=== PATIENT | female | born 1955 | race Hispanic/Latino ===

== ENCOUNTER 2019-12-13 18:35 | Inpatient (IN) | payer OTHER, SELFPAY ==
[2019-12-13] MEDS ORDERED: Morphine 4 MG/ML VIAL ONE (19:11)
[2019-12-13] MEDS ORDERED: Ondansetron PF 4 MG/2 ML Vial ONE ×2 (19:11→21:03)
[2019-12-13 19:21] LABS: #Eosinphils 0.2 thou/uL (0.0-0.7); #Lymphocytes 3.7 thou/uL (1.20-3.40); #Monocytes 0.4 thou/uL (0.11-0.59); #Neutrophils 4.2 thou/uL (1.40-6.50); %Basophils 0.5 % (0.0-1.0); %Eosinophils 2.8 % (0.0-10.0); %Lymphocytes 43.5 % (21.0-51.0); %Monocytes 4.5 % (0.0-10.0); %Neutrophils 48.8 % (42.0-75.0); Hemoglobin 8.1 g/dL (12.0-16.0); Mean Corpuscular HGB CONC 30.6 g/dL (32.0-36.0); Mean Corpuscular Hemoglobin 22.2 pg (27.0-31.0); Mean Corpuscular Volume 72.4 fL (78.0-98.0); Mean Platelet Volume 9.6 fL (7.4-10.4); Platelet Count 353 thou/uL (130-400); RBC Distribution Width 19.6 % (11.5-14.5); Red Blood Cell (RBC) Count 3.65 mill/uL (4.20-5.40); White Blood Cell (WBC) Count 8.5 thou/uL (4.8-10.8)
[2019-12-13 19:38] LABS: Anisocytosis SLIGHT = 6-15 cells (100X) (0-5/hpf); Hypochromia SLIGHT = 6-15 cells (100X) (0-5/hpf); MDiff Complete? YES; Microcytosis SLIGHT = 6-15 cells (100X) (0-5/hpf); Ovalocytes SLIGHT = 2-5 cells (100X) (0-1/hpf); Platelet Morphology Comment Appears Adequate; Polychromasia SLIGHT = 2-3 cells (100X) (0-2/hpf); Target Cells SLIGHT = 2-5 cells (100X) (0-1/hpf)
--- NOTE | 2019-12-13 20:56 | ULT ---
TRANSABDOMINAL TRANSVAGINAL PELVIC ULTRASOUND DATE:: 12/13/2019 8:32 PM CLINICAL HISTORY: History of right lower quadrant abdominal pain for 2 days with nausea and vomiting. History of hysterectomy and recent urinary tract infection. COMPARISON: CT the abdomen and pelvis without contrast dated December 13, 2019 TECHNIQUE: Grayscale and color Doppler images were obtained of the pelvis see a transabdominal and t ransvaginal approach FINDINGS: UTERUS: The uterus is surgically absent. OVARIES: The ovaries were not demonstrated. CUL-DE-SAC: No free fluid IMPRESSION: 1. Hysterectomy. 2. Nonvisualization of the ovaries. 3. No free fluid or lymphadenopathy identified.
--- NOTE | 2019-12-13 21:45 | PDOC.EVN ---
Event Note - Event Note Event Note: [id number] hp
[2019-12-13] MEDS ORDERED: metroNIDAZOLE 500 MG in Premix Bag 1 BAG IVPB SCH (22:00)
[2019-12-13] MEDS ORDERED: Morphine 4 MG/ML VIAL SLOW IVP PRN (22:52)
[2019-12-13] MEDS ORDERED: Acetaminophen 325 MG TAB PO PRN (23:00)
[2019-12-14] MEDS: Ondansetron PF 4 MG/2 ML Vial IVP PRN ×4 (00:22→23:06)
[2019-12-14] MEDS: Sodium Chloride 0.9% 1,000 ML IV SCH ×2 (00:23→09:03)
[2019-12-14] MEDS: metroNIDAZOLE 500 MG in Premix Bag 1 BAG IVPB SCH ×3 (00:23→16:50)
--- NOTE | 2019-12-14 01:19 | HP ---
CHIEF COMPLAINT: Abdominal pain. HISTORY OF PRESENT ILLNESS: Ms. Dubose is a 64-year-old female with past medical history of diabetes mellitus type 2, hypertension, hyperlipidemia, among others, presents to the emergency room with abdominal pain for the last 2 days, mainly on the right side of the abdomen, mainly on the right lower quadrant. The patient recently had UTI and just took the last dose of Levaquin. She denies vomiting, fever, chills, or diarrhea. The patient had a COVID-19 infection 2 months ago. Workup in the emergency room including imaging studies showed the equivocal findings for appendicitis? General surgeon was consulted in our medical facility and advised it is very unlikely to be appendicitis based on the imaging. Also, patient was found to be anemic with a hemoglobin of 8.1, low MCV. No prior labs to compare. No reported history of bleeding. The patient was on IV antibiotics. The patient is being admitted to hospital for further management. PAST MEDICAL HISTORY: 1. Hypertension. 2. Diabetes mellitus type 2. 3. Hyperlipidemia. 4. COVID-19 virus infection. PAST SURGICAL HISTORY: 1. Hysterectomy. 2. Left elbow surgery. 3. Right knee surgery. PAST PSYCHIATRIC HISTORY: Depression. FAMILY HISTORY: Reviewed and noncontributory. SOCIAL HISTORY: She smokes 5 cigarettes per day. Denies alcohol drinking. HOME MEDICATIONS: Please see home medication reconciliation form for updated medications. ALLERGIES: ALLERGIC TO PENICILLIN, SULFA, TRIMETHOPRIM. REVIEW OF SYSTEMS: Review of 14 systems negative except what is mentioned in history of present illness. PHYSICAL EXAMINATION: GENERAL: The patient is awake, alert, in mild distress. VITAL SIGNS: Blood pressure 115/55, pulse 61, respiratory rate is 16, temperature 97.8. HEAD AND NECK: Normocephalic, atraumatic. NECK: Supple. No JVD. CHEST: Fair bilateral air entry. HEART: S1, S2. Regular. ABDOMEN: Soft with right lower quadrant tenderness. Bowel sounds present. NEUROLOGIC: Awake, alert, oriented x3. PSYCH: Normal mood. EXTREMITIES: No clubbing, no cyanosis. GENITOURINARY: No suprapubic tenderness. No flank tenderness. ASSESSMENT: 1. Acute abdominal pain. 2. Diabetes mellitus, type 2. 3. Hypertension. 4. Hyperlipidemia. 5. History of coronavirus disease 2019 virus infection. PLAN: 1. Admit. 2. Surgeon was consulted for evaluation and further management regarding CT findings and to rule out acute appendicitis. 3. We will continue IV antibiotics for now. 4. IV fluids. 5. We will keep the patient n.p.o. for now and reassess later. 6. Reconcile home medications. 7. Pain management. 8. DVT prophylaxis as appropriate. 9. Expected length of stay, 1 midnight if patient is stable and cleared by surgeon. Job ID: [id number]
[2019-12-14 01:31] VITALS: BMI 38.5
[2019-12-14 05:30] LABS: #Basophils 0.1 thou/uL (0.0-0.2); #Eosinphils 0.1 thou/uL (0.0-0.7); #Lymphocytes 2.8 thou/uL (1.20-3.40); #Monocytes 0.4 thou/uL (0.11-0.59); #Neutrophils 4.7 thou/uL (1.40-6.50); %Basophils 0.7 % (0.0-1.0); %Eosinophils 1.3 % (0.0-10.0); %Lymphocytes 35.1 % (21.0-51.0); %Monocytes 4.9 % (0.0-10.0); Hemoglobin 7.5 g/dL (12.0-16.0); Mean Corpuscular HGB CONC 29.8 g/dL (32.0-36.0); Mean Corpuscular Hemoglobin 21.9 pg (27.0-31.0); Mean Corpuscular Volume 73.4 fL (78.0-98.0); Mean Platelet Volume 9.6 fL (7.4-10.4); Platelet Count 342 thou/uL (130-400); RBC Distribution Width 19.4 % (11.5-14.5); Red Blood Cell (RBC) Count 3.42 mill/uL (4.20-5.40)
[2019-12-14 05:48] LABS: ALT (SGPT) 31 U/L (8-55); AST (SGOT) 51 U/L (5-34); Albumin 3.4 g/dL (3.4-4.8); Alkaline Phosphatase 63 U/L (40-110); Anion Gap 12 mmol/L (10-20); BUN (Urea Nitrogen) 9 mg/dL (9.8-20.1); Bilirubin, Total 0.2 mg/dL (0.2-1.2); Calc. Creatinine Clearance 69 mL/min (70-130); Calcium 8.4 mg/dL (7.8-10.44); Carbon Dioxide 23 mmol/L (23-31); Chloride 106 mmol/L (98-107); Estimated GFR-MDRD 43; Globulin 3.5 g/dL (2.4-3.5); Glucose 157 mg/dL (80-115); Protein, Total 6.9 g/dL (6.0-8.3); Sodium 137 mmol/L (136-145)
--- NOTE | 2019-12-14 09:01 | PDOC.HOSPP ---
- Subjective Encounter Date: 12/14/19 Encounter Time: 11:00 Subjective: Patient with persistent significant RLQ pain, no radiation, worse with movement, occ will go away for a bit if gets into just the right position but comes right back. Has nausea, vomited once last night. - Objective Vital Signs & Weight: Vital Signs (12 hours) Temp Pulse Resp BP Pulse Ox 12/14/19 07:55 97.9 F 69 18 103/57 L 91 L 12/14/19 03:11 97.7 F 60 18 102/59 L 98 12/14/19 01:26 62 16 95 12/13/19 22:42 97.6 F 62 18 118/55 L 95 Weight Weight 211 lb I&O: 12/13/19 12/14/19 12/15/19 06:59 06:59 06:59 Intake Total 750 Balance 750 Result Diagrams: 12/14/19 04:56 12/14/19 04:56 Additional Labs: Accuchecks 12/14/19 05:45 POC Glucose 144 H Hospitalist ROS - Review of Systems Constitutional: denies: fever, chills Respiratory: denies: cough, shortness of breath Cardiovascular: denies: chest pain, palpitations Gastrointestinal: reports: nausea, vomiting, abdominal pain. denies: diarrhea, constipation Genitourinary: denies: dysuria, hematuria - Medication Medications: Active Medications Generic Name Dose Route Start Last Admin Trade Name Freq PRN Reason Stop Dose Admin Acetaminophen 650 mg 12/13/19 23:00 12/14/19 05:48 Acetaminophen 325 Mg Tab PO 12/14/19 09:15 650 mg Q4H PRN Administration Headache/Fever or Pain Sodium Chloride 1,000 mls @ 75 mls/hr 12/13/19 21:30 12/14/19 00:23 Normal Saline 0.9% IV 1,000 mls .[id number] PADMINI Administration Metronidazole 500 mg/ Device 100 mls @ 100 mls/hr 12/14/19 01:00 12/14/19 00:23 IVPB 100 mls [id number] PADMINI Administration Ondansetron HCl 4 mg 12/13/19 21:18 12/14/19 00:22 Ondansetron Pf 4 Mg/2 Ml Vial IVP 4 mg Q6H PRN Administration Nausea/Vomiting - Exam General Appearance: awake alert General - other findings: mild distress from pain ENT: moist mucosa Heart: RRR, no murmur, no gallops, no rubs Respiratory: CTAB, no wheezes, no rales, no ronchi Gastrointestinal: soft, non-distended, normal bowel sounds Gastrointestinal - other findings: mild guarding RLQ, TTP diffusely, worse in RLQ, no referred pain Psychiatric: normal affect, normal behavior, A&O x 3 Hosp A/P (1) Abdominal pain, right lower quadrant Code(s): R10.31 - RIGHT LOWER QUADRANT PAIN Status: Acute (2) Diabetes mellitus type 2 in obese Code(s): E11.69 - TYPE 2 DIABETES MELLITUS WITH OTHER SPECIFIED COMPLICATION; E66.9 - OBESITY, UNSPECIFIED Status: Chronic (3) HTN (hypertension) Code(s): I10 - ESSENTIAL (PRIMARY) HYPERTENSION Status: Chronic (4) HLD (hyperlipidemia) Code(s): E78.5 - HYPERLIPIDEMIA, UNSPECIFIED Status: Chronic (5) Anemia Code(s): D64.9 - ANEMIA, UNSPECIFIED Status: Acute Plan: microcytic, uncertain eitiology or how long present - Plan Patient with surgical consultation in ER, didn't believe that this was appendicitis but hasn't seen yet. Uncertain eitiology of pain. Patient admitted and on Cefepime and Metronidazole Significant what appears to be iron deficient anemia. Will check stool he moccult. Iron studies. May need GI evaluation if no surgical intervention. Monitor closely
[2019-12-14] MEDS: Famotidine/PF 20 mg/2ml Vial SLOW IVP SCH ×2 (09:02→20:30)
[2019-12-14] MEDS: Cefepime 1 GM in Sodium Chloride 0.9% 100 ML IVPB SCH ×2 (10:50→20:30)
[2019-12-14 11:14] LABS: SARS-CoV-2 MS2 Positive; SARS-CoV-2 N Gene Negative; SARS-CoV-2 S Gene Negative; SARS-CoV-2 by NAA Not Detected (NotDetected); SARS-CoV-2 orf1ab Negative
[2019-12-14 14:02] LABS: Iron 18 ug/dL (50-170); Iron Binding Capacity, Total 405 mcg/dL (265-497)
[2019-12-14 14:14] LABS: Ferritin 28.61 ng/mL (10-291)
--- NOTE | 2019-12-14 16:38 | ULT ---
Exam: Right upper quadrant ultrasound: HISTORY: Right-sided abdominal pain. COMPARISON: CT abdomen on 12/13/2019 FINDINGS: Liver: Enlarged in craniocaudal dimensions measuring 20 cm. Liver also demonstrates increased echogen icity relative to the right kidney suggesting diffuse fatty infiltration. No focal hepatic lesion is seen. Gallbladder: No evidence of gallbladder calculi, gallbladder wall thickening, or pericholecystic flui d. Common bile duct: The common duct is normal in caliber measuring 0.3 cm in diameter. Pancreas: Limited visualized portions of the pancreas demonstrate a normal sonographic appearance. Right kidney: Right kidney demonstrates a normal sonographic appearance. The right kidney measures 1 0.2 cm in length. IVC: The visualized IVC demonstrates a normal sonographic appearance. IMPRESSION: 1. No gallbladder calculi are seen, and the common duct is normal in caliber. 2. Hepatomegaly with diffuse fatty infiltration of the liver.
[2019-12-14] MEDS ORDERED: FLU VACC QS2020-21(6MOS UP)/PF 60 MCG/0.5 ML SYRINGE IM ONE (21:00)
[2019-12-14] MEDS ORDERED: traMADol HCl 50 MG TAB PO SCH (21:15)
[2019-12-14 22:44] LABS: #Eosinphils 0.3 thou/uL (0.0-0.7); #Lymphocytes 2.7 thou/uL (1.20-3.40); #Monocytes 0.5 thou/uL (0.11-0.59); #Neutrophils 4.3 thou/uL (1.40-6.50); %Basophils 0.4 % (0.0-1.0); %Eosinophils 3.4 % (0.0-10.0); %Lymphocytes 34.5 % (21.0-51.0); %Monocytes 5.9 % (0.0-10.0); %Neutrophils 55.8 % (42.0-75.0); Hemoglobin 7.8 g/dL (12.0-16.0); Mean Corpuscular HGB CONC 30.3 g/dL (32.0-36.0); Mean Corpuscular Hemoglobin 22.2 pg (27.0-31.0); Mean Corpuscular Volume 73.4 fL (78.0-98.0); Mean Platelet Volume 9.6 fL (7.4-10.4); Platelet Count 333 thou/uL (130-400); RBC Distribution Width 19.4 % (11.5-14.5); Red Blood Cell (RBC) Count 3.49 mill/uL (4.20-5.40); White Blood Cell (WBC) Count 7.7 thou/uL (4.8-10.8)
[2019-12-14] MEDS ORDERED: Morphine 2 MG/ML VIAL SLOW IVP SCH (23:00)
[2019-12-14 23:01] LABS: Lactic Acid 1.4 mmol/L (0.5-2.2)
[2019-12-14 23:05] LABS: ALT (SGPT) 29 U/L (8-55); AST (SGOT) 56 U/L (5-34); Albumin 3.3 g/dL (3.4-4.8); Alkaline Phosphatase 59 U/L (40-110); Anion Gap 10 mmol/L (10-20); BUN (Urea Nitrogen) 7 mg/dL (9.8-20.1); Bilirubin, Total 0.2 mg/dL (0.2-1.2); CRP (Inflammatory) Less than 0.50 mg/dL (= or < 0.5); Calc. Creatinine Clearance 77 mL/min (70-130); Calcium 8.2 mg/dL (7.8-10.44); Carbon Dioxide 21 mmol/L (23-31); Chloride 108 mmol/L (98-107); Estimated GFR-MDRD 49; Globulin 3.3 g/dL (2.4-3.5); Glucose 149 mg/dL (80-115); Lipase 17 U/L (8-78); Protein, Total 6.6 g/dL (6.0-8.3); Sodium 135 mmol/L (136-145)
[2019-12-15] MEDS: metroNIDAZOLE 500 MG in Premix Bag 1 BAG IVPB SCH ×3 (00:31→16:40)
[2019-12-15] MEDS: Sodium Chloride 0.9% 1,000 ML IV SCH ×3 (00:37→16:39)
[2019-12-15] MEDS ORDERED: Morphine 2 MG/ML VIAL SLOW IVP SCH (06:00)
[2019-12-15] MEDS: Ondansetron PF 4 MG/2 ML Vial IVP PRN ×3 (06:09→20:36)
[2019-12-15] MEDS ORDERED: Sodium Chloride 0.9% 500 ML IV SCH (08:00)
--- NOTE | 2019-12-15 08:21 | PDOC.HOSPP ---
- Subjective Encounter Date: 12/15/19 Encounter Time: 11:00 Subjective: Patient with worsening of RLQ pain yesterday after trying to eat. Had multiple episodes of vomiting. No fever. Just had repeat CT scan done this AM. - Objective Vital Signs & Weight: Vital Signs (12 hours) Temp Pulse Resp BP Pulse Ox 12/15/19 07:42 97.8 F 70 12 108/59 L 91 L 12/15/19 03:06 97.8 F 71 16 105/59 L 94 L 12/14/19 23:09 97.9 F 65 18 144/76 H 96 Weight Weight 211 lb I&O: 12/14/19 12/15/19 12/16/19 06:59 06:59 06:59 Intake Total 750 1265.5 Balance 750 1265.5 Result Diagrams: 12/14/19 22:33 12/14/19 22:33 Additional Labs: Accuchecks 12/15/19 12/14/19 12/14/19 05:20 20:22 17:39 POC Glucose 121 H 198 H 126 H 12/14/19 12/14/19 11:45 00:18 POC Glucose 135 H 181 H Hospitalist ROS - Review of Systems Constitutional: denies: fever, chills Respiratory: denies: cough, shortness of breath Cardiovascular: denies: chest pain, palpitations Gastrointestinal: reports: nausea, vomiting, abdominal pain. denies: diarrhea, constipation Genitourinary: denies: dysuria, hematuria - Medication Medications: Active Medications Generic Name Dose Route Start Last Admin Trade Name Freq PRN Reason Stop Dose Admin Famotidine 20 mg 12/14/19 09:00 12/14/19 20:30 Famotidine/Pf 20 Mg/2ml Vial SLOW IVP 20 mg Q12HR PADMINI Administration Sodium Chloride 1,000 mls @ 75 mls/hr 12/13/19 21:30 12/15/19 06:03 Normal Saline 0.9% IV 1,000 mls .[id number] PADMINI Administration Cefepime HCl 1 gm/ Sodium 100 mls @ 200 mls/hr 12/14/19 09:00 12/14/19 20:30 Chloride IVPB 100 mls Q12HR PADMINI Administration Metronidazole 500 mg/ Device 100 mls @ 100 mls/hr 12/14/19 01:00 12/15/19 00:31 IVPB 100 mls 0100,0900,1700 PADMINI Administration Ondansetron HCl 4 mg 12/13/19 21:18 12/15/19 06:09 Ondansetron Pf 4 Mg/2 Ml Vial IVP 4 mg Q6H PRN Administration Nausea/Vomiting - Exam General Appearance: NAD, awake alert ENT: moist mucosa Heart: RRR, no murmur, no gallops, no rubs Respiratory: CTAB, no wheezes, no rales, no ronchi Gastrointestinal: soft, non-distended, normal bowel sounds, tender to palpation Gastrointestinal - other findings: RUQ and RLQ with mild guarding Psychiatric: normal affect, normal behavior, A&O x 3 Hosp A/P (1) Abdominal pain, right lower quadrant Code(s): R10.31 - RIGHT LOWER QUADRANT PAIN Status: Acute (2) Diabetes mellitus type 2 in obese Code(s): E11.69 - TYPE 2 DIABETES MELLITUS WITH OTHER SPECIFIED COMPLICATION; E66.9 - OBESITY, UNSPECIFIED Status: Chronic (3) HTN (hypertension) Code(s): I10 - ESSENTIAL (PRIMARY) HYPERTENSION Status: Chronic (4) HLD (hyperlipidemia) Code(s): E78.5 - HYPERLIPIDEMIA, UNSPECIFIED Status: Chronic (5) Anemia Code(s): D64.9 - ANEMIA, UNSPECIFIED Status: Acute - Plan Patient with surgical consultation by Dr. León. She is repeating a CT scan this AM. U/S liver/GB with just fatty liver. Patient admitted and on Cefepime and Metronidazole. No evidence infection at this time so will d/c antibiotics if repeat CT negative today. Lab consistent with significant iron deficiency anemia. In her age bowel loss the most common. Obtain hemoccult as soon as passes stool. Will start iron supplementation. Monitor closely
--- NOTE | 2019-12-15 08:26 | CON ---
DATE OF CONSULTATION: 12/14/2019 CHIEF COMPLAINT: Abdominal pain. HISTORY OF PRESENT ILLNESS: Ms. Dubose is a 64-year-old woman with a 2-day history of right-sided abdominal pain. She states that it came on around mid day on Thursday and has been intermittent since that time. She cannot think of any exacerbating or alleviating factors. She does state that certain positions seem to make it worse. She has not noticed that eating makes it worse. She has had nausea and 1 episode of vomiting, which was of clear liquid. There was no blood or coffee-ground color to the emesis. She has had normal bowel movements. She denies any diarrhea or constipation. She denies any fevers or chills. She was diagnosed with a UTI 5 days ago and treated with Levaquin and had just completed a 5-day course prior to her admission to the hospital. She states that her dysuria rapidly resolved after starting her antibiotics. She never had any hematuria or fever with her UTI. A CT scan was obtained at the emergency room and this was felt to be indeterminate for appendicitis. The midportion of the appendix measured 8 mm, but there was gas throughout the appendix and no periappendiceal stranding. She was admitted to the Medicine Service and placed on empiric antibiotics. She has had a hysterectomy, but no other abdominal surgeries. She was found to be anemic, but denies any history of melena or hematochezia and states that she has a normal diet including green leafy vegetables and red meat. PAST MEDICAL HISTORY: She is a smoker, smoking less than 1 pack per day. She has hypertension, type-2 diabetes, hyperlipidemia, and was diagnosed with COVID 2 months ago. She still has some residual shortness of breath since her COVID infection, but has otherwise completely recovered. PAST SURGICAL HISTORY: Hysterectomy by her report. She did not undergo oophorectomy, left elbow surgery, and 2 knee surgeries. FAMILY HISTORY: Heart attack in her sister at 64, pancreatic cancer in a brother, but no family history of GI, uterine, or prostate malignancy. Her mother and her brother have had stroke and her father in his 80s of "hardened arteries." SOCIAL HISTORY: She smokes, but does not drink or use illicit drugs. ALLERGIES: SHE REPORTS AN ALLERGY TO PENICILLIN, WHICH CAUSES SHORTNESS OF BREATH, AND BACTRIM, WHICH CAUSES RASH. OUTPATIENT MEDICATIONS: Include; 1. Aspirin 81 mg p.o. daily. 2. Estradiol 1 mg p.o. daily. 3. Glimepiride 2 mg p.o. b.i.d. 4. Hydrochlorothiazide 25 mg p.o. daily. 5. Synthroid 150 mcg p.o. daily. 6. Lisinopril 2.5 mg p.o. daily. 7. Metoprolol 50 mg p.o. daily. 8. Pravastatin 40 mg p.o. daily. 9. Zolpidem 10 mg p.o. at bedtime. REVIEW OF SYSTEMS: Ten-system review of systems is negative except per HPI. HEALTH MAINTENANCE: The patient states that she had a normal colonoscopy, but this was probably about 10 years ago. PHYSICAL EXAMINATION: VITAL SIGNS: The patient has been afebrile throughout her hospital stay. Heart rate 56, respirations 16, 91% saturated on room air, blood pressure 103/57. GENERAL: A healthy-appearing woman, in no acute distress. She is not jaundiced or icteric. She is not toxic or flushed in appearance. HEENT: Unremarkable. NECK: Supple without lymphadenopathy or thyroid nodules. She is not jaundiced or icteric. HEART: Regular in its rate and rhythm without murmurs, rubs, or gallops. LUNGS: Clear to auscultation bilaterally, and she has no pain with deep inspiration. ABDOMEN: Soft and nondistended. She does not have any palpable masses or hernias. She is nontender to palpation in the left abdomen. She is moderately tender to palpation in the right upper quadrant and mildly tender to palpation in the right lower quadrant. She does not exhibit any rigidity, rebound, or guarding. EXTREMITIES: Warm and well perfused without edema. NEURO: No focal deficits. PSYCHIATRIC: Alert, oriented, and appropriate. LABORATORY DATA: White count is normal, there is no left shift, hematocrit is low at 25, and MCV is low at 73, platelets are 342. Electrolytes are unremarkable. Creatinine is mildly elevated at 1.25. Iron is low at 18 with 4% saturation. AST is mildly elevated at 51, but other LFTs are normal and lipase is normal. IMAGING DATA: CT images are reviewed and I agree with the written report. The appendix is borderline enlarged in the midportion, but there is no periappendiceal stranding and there is gap in the tip of the appendix, which did not appear dilated. This may represent an appendicolith, which could potentially cause problems, but it does not appear to be causing acute appendicitis. The patient has more tenderness to exam in the right upper quadrant fore me so I am going to order a gallbladder ultrasound. If this is normal, I think we could try feeding her. If this is abnormal, then gallbladder surgery can be considered. If she does undergo gallbladder surgery, then I would recommend removing her appendix under the same anesthesia. However, she does not appear to have acute appendicitis at this time. It is possible that this is partially suppressed by the Levaquin she was taking for her UTI, but she has been on IV antibiotics since her admission and really she states this has not had any effect on her pain. She is on IV cefepime and Flagyl. Her other potential causes of her pain are gastroenteritis or colitis, although her colon does not appear thickened or inflamed either, and she has not had any diarrhea. However, the colicky nature of the pain and lack of white count or left shift would support this diagnosis. Job ID: [id number]
[2019-12-15] MEDS: Famotidine/PF 20 mg/2ml Vial SLOW IVP SCH ×2 (09:17→19:57)
[2019-12-15] MEDS: Cefepime 1 GM in Sodium Chloride 0.9% 100 ML IVPB SCH ×2 (09:18→19:57)
--- NOTE | 2019-12-15 09:25 | PDOC.GSPN ---
Surgery Progress Note: Subj - Subjective Narrative: Patient still with right-sided abdominal pain and nausea. According to her nurse she did not require any pain medications all day yesterday until she started her clear liquid diet after which she required several doses of pain medication. No fevers or chills. No emesis. Abdomen is mangle tender to palpation but today she indicates the point of greatest tenderness in the right lower quadrant. No rigidity rebound or guarding. Assessment/plan: Persistent right-sided abdominal pain with negative gallbladder ultrasound and nondiagnostic noncontrast CT. Acute appendicitis is still within the differential although I would have expected the CT to be positive after 2 days of abdominal pain, and I also would have expected acute appendicitis to improve on IV antibiotics. We discussed her options which include HIDA scan which I do not anticipate would be helpful given a normal gallbladder ultrasound and unremarkable LFTs, repeat CT with contrast to get a better look at the bowel, and empiric laparoscopic appendectomy understanding that there is a relatively high risk of a normal appendix. The patient has decided to proceed with repeat CT, and I have ordered contrast for her to drink. Creatinine is minimally above normal range so I have ordered a normal saline bolus as well before her CT. Surgery Progress Note: Obj - Vital signs Vital signs: Vital Signs - Most Recent Temp Pulse Resp BP Pulse Ox 97.8 F 70 12 108/59 L 91 L 12/15/19 07:42 12/15/19 07:42 12/15/19 07:42 12/15/19 07:42 12/15/19 07:42 Surgery Progress Note: Results - Labs Result Diagrams: 12/14/19 22:33 12/14/19 22:33 Lab results: Laboratory Results - last 12 hr 12/14/19 12/14/19 12/14/19 22:33 22:33 22:33 WBC 7.7 RBC 3.49 L Hgb 7.8 L Hct 25.6 L MCV 73.4 L MCH 22.2 L MCHC 30.3 L RDW 19.4 H Plt Count 333 MPV 9.6 Neutrophils % 55.8 Lymphocytes % 34.5 Monocytes % 5.9 Eosinophils % 3.4 Basophils % 0.4 Neutrophils # 4.3 Lymphocytes # 2.7 Monocytes # 0.5 Eosinophils # 0.3 Basophils # 0.0 Sodium 135 L Potassium 4.0 Chloride 108 H Carbon Dioxide 21 L Anion Gap 10 BUN 7 L Creatinine 1.12 H Estimated GFR (MDRD) 49 Glucose 149 H POC Glucose Lactic Acid 1.4 Calcium 8.2 Total Bilirubin 0.2 AST 56 H ALT 29 Alkaline Phosphatase 59 C-Reactive Protein Less than 0.50 Serum Total Protein 6.6 Albumin 3.3 L Globulin 3.3 Albumin/Globulin Ratio 1.0 L Lipase 17 12/15/19 05:20 WBC RBC Hgb Hct MCV MCH MCHC RDW Plt Count MPV Neutrophils % Lymphocytes % Monocytes % Eosinophils % Basophils % Neutrophils # Lymphocytes # Monocytes # Eosinophils # Basophils # Sodium Potassium Chloride Carbon Dioxide Anion Gap BUN Creatinine Estimated GFR (MDRD) Glucose POC Glucose 121 H Lactic Acid Calcium Total Bilirubin AST ALT Alkaline Phosphatase C-Reactive Protein Serum Total Protein Albumin Globulin Albumin/Globulin Ratio Lipase
--- NOTE | 2019-12-15 11:56 | CT ---
CT ABDOMEN AND PELVIS WITH IV CONTRAST 12/15/2019 CLINICAL INFORMATION: Abdominal pain with nausea and vomiting. COMPARISON: Noncontrast CT abdomen and pelvis on 12/13/2019 Technique: Multiple contiguous axial CT images are obtained through the abdomen and pelvis with IV contrast. Cor onal reformatted images are provided. FINDINGS: Lower Chest: Again noted are interstitial densities at each lung base which were also seen on the betzy or study may be related to mild chronic interstitial lung changes. Vascular calcifications are seen in the coronary arteries with calcification of the mitral valve annulus. Mild soft tissue prominence is partially imaged in each hilar region which could be related to mild nonspecific lymphadenopathy. Mildly prominent lymph node is seen posterior to the left atrium to the right of mid line measuring 1.1 cm in short axis dimension which is incompletely imaged. Vessels: Vascular calcifications in the abdominal aorta and iliac arteries. Abdomen: Portal vein:Patent Gallbladder: Within normal limits for CT imaging. Liver: Enlarged in craniocaudal dimensions measuring 19 cm. Liver is mildly diminished in attenuation suggesting fatty infiltration. Spleen: within normal limits. Pancreas: within normal limits. Adrenals: within normal limits. Kidneys: within normal limits. Bowel: Colonic diverticulosis primarily involving the sigmoid colon. Loops of small bowel are normal in caliber. Appendix: The appendix remains prominent in size measuring 8 to 9 mm in diameter. There are foci of g as seen in the region of the prominence of the appendix, and the distal appendix is is not dilated. No significant inflammatory changes or wall thickening involving the appendix is seen. The on increas e in diameter of the appendix may be within normal limits for the patient. Peritoneum: No ascites or free air; no fluid collection. Mesentery and Retroperitoneum: No enlarged mesenteric or retroperitoneal lymph nodes. Abdominal Wall: within normal limits. Pelvis: Reproductive Organs: Evidence of hysterectomy. Bladder: within normal limits. Bones: Degenerative changes seen throughout the visualized lower thoracic and involving the lumbar sp ine. Trace anterolisthesis of L4 on L5 is present likely attributable to prominent facet degenerative changes at this level. There is a rounded lucency seen within the T12 vertebral body vladimir suring 10 mm. This is difficult to definitively characterize but demonstrate characteristics compatible with a hemangioma on MRI lumbar spine and 2010. IMPRESSION: 1. No acute findings in the abdomen or pelvis. 2. Hepatomegaly with fatty infiltration of the liver. 3. Hysterectomy. 4. Suggestion of mild nonspecific hilar lymphadenopathy with mildly prominent lower mediastinal lymph node. Etiology uncertain. 5. Colonic diverticulosis. 6. Stable mild prominence of the appendix. This may be within normal limits for the patient. There ar e no definitive findings to suggest acute appendicitis.
[2019-12-15] MEDS ORDERED: Iopamidol-370 76% 500 ML 1 ML ONE (15:00)
[2019-12-15] MEDS: traMADol HCl 50 MG TAB PO PRN (20:35)
[2019-12-16] MEDS: metroNIDAZOLE 500 MG in Premix Bag 1 BAG IVPB SCH ×3 (00:43→16:45)
[2019-12-16] MEDS: Ondansetron PF 4 MG/2 ML Vial IVP PRN (02:38)
[2019-12-16] MEDS: traMADol HCl 50 MG TAB PO PRN (02:38)
[2019-12-16] MEDS: Sodium Chloride 0.9% 1,000 ML IV SCH ×3 (05:36→16:45)
--- NOTE | 2019-12-16 08:27 | PDOC.GSPN ---
Surgery Progress Note: Subj - Subjective Narrative: The nurse reports again that the patient had worsening of abdominal pain after drinking clear liquids so I am going to get a HIDA scan to further evaluate her gallbladder dyskinesia. CT did not show any other abnormalities and her appendix looks the same. The midportion does look slightly prominent but there is no stranding or inflammatory changes. The patient states that the pain is now going down her right leg and she has to hold her hip in a certain position to get comfortable. Her abdomen is soft but she still has some focal tenderness in the right lateral abdomen. She did have a bowel movement yesterday and this was negative for fecal occult blood. Assessment/plan: Continued right sided abdominal pain. HIDA scan is ordered. If this is abnormal I would recommend laparoscopic cholecystectomy and laparoscopic appendectomy. If the gallbladder looks normal I think that we should proceed with laparoscopic appendectomy. I do not believe the patient has appendicitis but she has persistent right-sided pain and her appendix is not completely normal on imaging and I think it will be a continued source of confusion and unnecessary imaging if it is not removed. Surgery Progress Note: Obj - Vital signs Vital signs: Vital Signs - Most Recent Temp Pulse Resp BP Pulse Ox 98.2 F 66 14 120/63 96 12/16/19 07:48 12/16/19 07:48 12/16/19 07:48 12/16/19 07:48 12/16/19 07:48 Surgery Progress Note: Results - Labs Result Diagrams: 12/14/19 22:33 12/14/19 22:33 Lab results: Laboratory Results - last 12 hr 12/15/19 20:19 POC Glucose 180 H
[2019-12-16] MEDS: Famotidine/PF 20 mg/2ml Vial SLOW IVP SCH ×2 (09:10→20:11)
[2019-12-16] MEDS: Cefepime 1 GM in Sodium Chloride 0.9% 100 ML IVPB SCH ×2 (09:10→20:38)
[2019-12-16 09:21] LABS: ALT (SGPT) 23 U/L (8-55); AST (SGOT) 31 U/L (5-34); Albumin 3.2 g/dL (3.4-4.8); Alkaline Phosphatase 59 U/L (40-110); Anion Gap 12 mmol/L (10-20); BUN (Urea Nitrogen) 4 mg/dL (9.8-20.1); Bilirubin, Total 0.3 mg/dL (0.2-1.2); Calc. Creatinine Clearance 112 mL/min (70-130); Calcium 8.6 mg/dL (7.8-10.44); Carbon Dioxide 24 mmol/L (23-31); Chloride 104 mmol/L (98-107); Estimated GFR-MDRD 75; Globulin 3.4 g/dL (2.4-3.5); Glucose 124 mg/dL (80-115); Potassium 3.5 mmol/L (3.5-5.1); Protein, Total 6.6 g/dL (6.0-8.3); Sodium 136 mmol/L (136-145)
[2019-12-16 09:48] LABS: #Eosinphils 0.4 thou/uL (0.0-0.7); #Lymphocytes 2.8 thou/uL (1.20-3.40); #Monocytes 0.5 thou/uL (0.11-0.59); #Neutrophils 4.2 thou/uL (1.40-6.50); %Basophils 0.6 % (0.0-1.0); %Eosinophils 4.7 % (0.0-10.0); %Monocytes 6.2 % (0.0-10.0); %Neutrophils 53.6 % (42.0-75.0); Hemoglobin 7.7 g/dL (12.0-16.0); Mean Corpuscular HGB CONC 30.5 g/dL (32.0-36.0); Mean Corpuscular Hemoglobin 22.7 pg (27.0-31.0); Mean Corpuscular Volume 74.4 fL (78.0-98.0); Mean Platelet Volume 9.3 fL (7.4-10.4); Platelet Count 325 thou/uL (130-400); RBC Distribution Width 19.1 % (11.5-14.5); Red Blood Cell (RBC) Count 3.41 mill/uL (4.20-5.40); White Blood Cell (WBC) Count 7.9 thou/uL (4.8-10.8)
[2019-12-16] MEDS ORDERED: Ondansetron PF 4 MG/2 ML Vial ONE (09:48)
[2019-12-16] MEDS ORDERED: Albuterol Sulfate HFA (OR ONLY) ONE (09:48)
[2019-12-16] MEDS ORDERED: Rocuronium Bromide 10 MG/ML (10ML VIAL) ONE (09:48)
[2019-12-16] MEDS ORDERED: PROPOFOL 200 MG/20 ML VIAL ONE (09:48)
[2019-12-16] MEDS ORDERED: Succinylcholine Chloride 20 MG/ML 10 ml SYRINGE FS ONE (09:48)
[2019-12-16] MEDS ORDERED: Lidocaine 1% PF 5 ML VIAL ONE (09:48)
[2019-12-16] MEDS ORDERED: Glycopyrrolate 0.2 MG/ML 5 ML SYRINGE ONE (09:48)
--- NOTE | 2019-12-16 12:24 | PDOC.HOSPP ---
- Subjective Encounter Date: 12/16/19 Encounter Time: 09:00 Subjective: Patient with persistent RLQ pain, now going down her leg. Does have a little right SI joint pain to palpation but not severe. Continued vomiting of fluids when she tries to take po. - Objective Vital Signs & Weight: Vital Signs (12 hours) Temp Pulse Resp BP Pulse Ox 12/16/19 07:48 98.2 F 66 14 120/63 96 12/16/19 04:36 97.8 F 73 16 104/58 L 94 L 12/16/19 00:43 97.8 F 71 18 109/61 95 Weight Weight 211 lb I&O: 12/15/19 12/16/19 12/17/19 06:59 06:59 06:59 Intake Total 1265.5 3534 Balance 1265.5 3534 Result Diagrams: 12/16/19 08:28 12/16/19 08:28 Additional Labs: Accuchecks 12/15/19 12/15/19 20:19 15:04 POC Glucose 180 H 225 H Hospitalist ROS - Review of Systems Constitutional: denies: fever, chills Respiratory: denies: cough, shortness of breath Cardiovascular: denies: chest pain, palpitations Gastrointestinal: reports: nausea, vomiting, abdominal pain. denies: diarrhea, constipation, hematochezia Genitourinary: denies: dysuria, hematuria - Medication Medications: Active Medications Generic Name Dose Route Start Last Admin Trade Name Freq PRN Reason Stop Dose Admin Famotidine 20 mg 12/14/19 09:00 12/16/19 09:10 Famotidine/Pf 20 Mg/2ml Vial SLOW IVP 20 mg Q12HR PADMINI Administration Sodium Chloride 1,000 mls @ 75 mls/hr 12/13/19 21:30 12/16/19 09:11 Normal Saline 0.9% IV 1,000 mls .[id number] PADMINI Administration Cefepime HCl 1 gm/ Sodium 100 mls @ 200 mls/hr 12/14/19 09:00 12/16/19 09:10 Chloride IVPB 100 mls Q12HR PADMINI Administration Metronidazole 500 mg/ Device 100 mls @ 100 mls/hr 12/14/19 01:00 12/16/19 09:11 IVPB 100 mls 0100,0900,1700 PADMINI Administration Ondansetron HCl 4 mg 12/13/19 21:18 12/16/19 02:38 Ondansetron Pf 4 Mg/2 Ml Vial IVP 4 mg Q6H PRN Administration Nausea/Vomiting Tramadol HCl 50 mg 12/15/19 20:04 12/16/19 02:38 Tramadol Hcl 50 Mg Tab PO 50 mg Q6H PRN Administration Severe Pain (7-10) - Exam General Appearance: NAD, awake alert ENT: moist mucosa Heart: RRR, no murmur, no gallops, no rubs Respiratory: CTAB, no wheezes, no rales, no ronchi Gastrointestinal: soft, non-distended, normal bowel sounds Gastrointestinal - other findings: TTP RUQ and RLQ, significant guarding in RLQ with deep palpation Extremities - other findings: TTP right SI joint, doesn't reproduce abd or leg pain Psychiatric: normal affect, normal behavior, A&O x 3 Hosp A/P (1) Abdominal pain, right lower quadrant Code(s): R10.31 - RIGHT LOWER QUADRANT PAIN Status: Acute (2) Diabetes mellitus type 2 in obese Code(s): E11.69 - TYPE 2 DIABETES MELLITUS WITH OTHER SPECIFIED COMPLICATION; E66.9 - OBESITY, UNSPECIFIED Status: Chronic (3) HTN (hypertension) Code(s): I10 - ESSENTIAL (PRIMARY) HYPERTENSION Status: Chronic (4) HLD (hyperlipidemia) Code(s): E78.5 - HYPERLIPIDEMIA, UNSPECIFIED Status: Chronic (5) Anemia Code(s): D64.9 - ANEMIA, UNSPECIFIED Status: Acute - Plan Patient admitted and on Cefepime and Metronidazole. Appreciate Dr. León's assistance. Repeat CT unchanged. HIDDA scan today, then either cholecystectomy or appendectomy depending on the results per Dr. León's note. Lab consistent with significant iron deficiency anemia. In her age bowel loss the most common. Obtain hemoccult as soon as passes stool. Will start iron supplementation. Monitor closely
--- NOTE | 2019-12-16 12:33 | NM ---
HEPATOBILIARY SCAN: HISTORY:Right-sided abdominal pain RADIOPHARMACEUTICAL: 5.4 mCi Technetium 99m Mebrofenin injected intravenously. 1.9 mcg of CCK was adm inistered intravenously after the initial 60 minute imaging acquisition 2 estimated gallbladder ejection fraction. FINDINGS: There is normal tracer extraction by the liver with normal excretion into the biliary tracts and smal l bowel loops and normal filling of the gallbladder. The calculated gallbladder ejection fraction following an oral fatty meal measures 7%. IMPRESSION: 1. Visualization of the gallbladder virtually excludes the presence of cystic duct obstruction. 2. Visualization of bowel activity makes obstruction of the common bile duct unlikely. 3. Diminished gallbladder ejection fracture can be seen in patients with chronic cholecystitis or gal lbladder dyskinesia. 4. Findings were discussed with Dr. León at 12:25 PM on December 16, 2019.
--- NOTE | 2019-12-16 13:03 | PDOC.GSPN ---
Surgery Progress Note: Subj - Subjective Narrative: The bladder fills normally and contrast goes to the duodenum normally. Ejection fraction however is very low at 7% and patient did have some pain after the CCK. This is consistent with biliary dyskinesia. I recommended laparoscopic cholecystectomy, with laparoscopic appendectomy under the same anesthesia. Inherent risks of surgery were discussed with the patient. These include but are not limited to bleeding, infection, risks of anesthesia including heart at tack stroke and aspiration pneumonia, damage to nearby structures including bowel liver bile duct and bladder, need for open surgery need for other procedures and persistence of pain postoperatively. She understands that her symptoms are not completely typical for appendiceal or gallbladder etiologies and that other factors could be contributing to or causing the pain. She has been posted for the operating room this afternoon. All of her questions were answered and she wishes to proceed. Surgery Progress Note: Obj - Vital signs Vital signs: Vital Signs - Most Recent Temp Pulse Resp BP Pulse Ox 98.2 F 66 14 120/63 96 12/16/19 07:48 12/16/19 07:48 12/16/19 07:48 12/16/19 07:48 12/16/19 07:48 Surgery Progress Note: Results - Labs Result Diagrams: 12/16/19 08:28 12/16/19 08:28 Lab results: Laboratory Results - last 12 hr 12/16/19 12/16/19 08:28 08:28 WBC 7.9 RBC 3.41 L Hgb 7.7 L Hct 25.4 L MCV 74.4 L MCH 22.7 L MCHC 30.5 L RDW 19.1 H Plt Count 325 MPV 9.3 Neutrophils % 53.6 Lymphocytes % 35.0 Monocytes % 6.2 Eosinophils % 4.7 Basophils % 0.6 Neutrophils # 4.2 Lymphocytes # 2.8 Monocytes # 0.5 Eosinophils # 0.4 Basophils # 0.0 Sodium 136 Potassium 3.5 Chloride 104 Carbon Dioxide 24 Anion Gap 12 BUN 4 L Creatinine 0.77 Estimated GFR (MDRD) 75 Glucose 124 H Calcium 8.6 Total Bilirubin 0.3 AST 31 ALT 23 Alkaline Phosphatase 59 Serum Total Protein 6.6 Albumin 3.2 L Globulin 3.4 Albumin/Globulin Ratio 0.9 L
[2019-12-16] MEDS ORDERED: SUGAMMADEX SODIUM 200 MG/2 ML VIAL ONE (15:26)
[2019-12-16] MEDS ORDERED: Fentanyl 100 MCG/2 ML VIAL ONE ×4 (15:26→19:25)
[2019-12-16] MEDS ORDERED: Bupivacaine/Epinephrine 0.25% 30 ML VIAL ONE (15:27)
[2019-12-16] MEDS ORDERED: metroNIDAZOLE 500 MG/100 ML BAG ONE (15:44)
[2019-12-16] MEDS ORDERED: Promethazine HCl 25 MG/ML VIAL SLOW IVP PRN (17:44)
[2019-12-16] MEDS ORDERED: HYDROmorphone 2 MG/ML VIAL SLOW IVP PRN (17:44)
[2019-12-16] MEDS ORDERED: Ondansetron HCl/PF 4 MG/2 ML Vial IVP PRN (17:44)
[2019-12-16] MEDS ORDERED: Promethazine HCl 25 MG/ML VIAL IM PRN (17:44)
--- NOTE | 2019-12-16 17:48 | PDOC.OP ---
Operative Note - Operative Note Operative Note: DATE OF PROCEDURE: 12/16/2019 PROCEDURES: Laparoscopic cholecystectomy and laparoscopic appendectomy. SURGEON: Laury León M.D. PREOPERATIVE DIAGNOSIS: Biliary dyskinesia and abnormal appearing appendix with chronic right-sided abdominal pain. POSTOPERATIVE DIAGNOSIS: Biliary dyskinesia and abnormal appearing appendix with chronic right-sided abdominal pain. FINDINGS: Thin-walled distended gallbladder with small cystic duct but no signs of acute inflammation. Noninflamed appendix with focal enlargement of the midportion but no signs of acute inflammation. HISTORY: Patient with right-sided abdominal pain and nausea worse after trying to advance diet. Gallbladder ultrasound was negative for stones but HIDA scan showed low ejection fraction consistent with biliary dyskinesia. Bile duct was normal caliber on preoperative imaging and HIDA showed no signs of obstruction. CT showed some prominence of the midsection of the appendix but no signs of inflammation. Recommendation was made to proceed with laparoscopic cholecyste ctomy and laparoscopic appendectomy under the same anesthesia. PROCEDURE: After informed consent was obtained and appropriate preoperative antibiotics were administered, the patient was taken to the operating room and placed in the supine position and general endotracheal anesthesia was administered. The stomach was decompressed with an OG tube and the bladder decompressed with a Blanca catheter and the abdomen was prepped and draped in standard sterile fashion. Local anesthesia was infused to the skin and subcutaneous tissues at the umbilical level. A transverse skin incision was made. The fascia was elevated and a Veress needle was placed into the abdominal cavity without difficulty. Opening pressure was less than 5 but quickly bijal to 15. A second attempt was made with the same results. A [place] port was advanced under direct laparoscopic vision and the fascia and peritoneum were clearly seen as they were traversed. As soon as the peritoneal cavity was entered carbon dioxide gas was easily insufflated to an intra-abdominal pressure of 15, which the patient tolerated well. The abdominal cavity was carefully examined. There was no evidence of Veress needle or of trocar injury but there was gas in the falciform ligament consistent with insufflation into the preperitoneal space. Local anesthesia was infused to the skin and subcutaneous tissues at the epigastric, right upper quadrant, and right lateral abdominal sites and trocars were placed under direct vision of the laparoscope. The fundus of the gallbladder was grasped and retracted superiorly. The infundibulum was grasped and retracted laterally. The serosa was stripped inferiorly at the level of the neck of the gallbladder exposing the cystic duct and artery which were traced clearly to their insertion in the gallbladder. Critical view of safety was obtained and the cystic duct and artery were clipped and divided between clips. The gallbladder was then dissected free of the gallbladder bed using hook electrocautery. The gallbladder was distended and thin-walled and during this process hole was created in the wall of the gallbladder and bile was suctioned out of the gallbladder decompressing it. The hole was then clamped shut to prevent bile spillage into the abdominal cavity. Prior to complete removal of the gallbladder from the gallbladder bed, the area of the cystic duct and artery stumps was examined. The clips were in good position completely across these structures and there was no bleeding and no leakage of bile. The gallbladder was then placed into the right paracolic gutter and attention turned to the laparoscopic appendectomy. The appendix was identified and appeared inflamed but not perforated. The appendix was grasped by the mesoappendix and elevated. The decision was made to resect the gallbladder with the mesoappendix in case the prominent area of the appendix returned as carcinoid or other pathologic findings. The appendix was mobilized away from the cecum and the mesoappendix was sequentially ligated and divided at its base down to the base of the appendix, which was normal in appearance and was clearly seen to be at the confluence of the tenia. Two Endoloops were placed around the base of the appendix and the appendix was divided between these Endoloops.the appendix and gallbladder were then placed into an EndoCatch bag and drawn out through the epigastric incision. The epigastric trocar was then replaced and the operative site was easily irrigated to clear. The epigastric trocar was removed and the fascia closed under direct laparoscopic vision with a 0 Vicryl suture on a GraNee needle with excellent technical result. The right upper quadrant and right lateral trocars were then removed and hemostasis verified. Carbon dioxide gas was desufflated through the umbilical trocar which was then removed. The skin incisions were irrigated and additional local anesthesia infused at each site. The skin was closed with 4-0 subcuticular Monocryl sutures and Dermabond dressings were placed. The patient was extubated and taken to the recovery room in good condition. Estimated blood loss was minimal. There were no complications. SPECIMENS: Gallbladder and appendix.
[2019-12-16] MEDS ORDERED: Acetaminophen 325 MG TAB PO PRN (18:00)
[2019-12-16] MEDS ORDERED: traMADol HCl 50 MG TAB PO PRN (18:00)
[2019-12-16] MEDS ORDERED: Morphine 2 MG/ML VIAL SLOW IVP PRN (18:01)
[2019-12-16] MEDS ORDERED: Ondansetron PF 4 MG/2 ML Vial IVP PRN (18:02)
[2019-12-16] MEDS ORDERED: Promethazine HCl 25 MG/ML VIAL ONE (19:25)
[2019-12-17] MEDS: metroNIDAZOLE 500 MG in Premix Bag 1 BAG IVPB SCH ×3 (00:37→17:29)
[2019-12-17] MEDS: Sodium Chloride 0.9% 1,000 ML IV SCH ×2 (06:39→18:44)
[2019-12-17 08:05] LABS: Hemoglobin 7.8 g/dL (12.0-16.0); Mean Corpuscular HGB CONC 30.4 g/dL (32.0-36.0); Mean Corpuscular Hemoglobin 22.7 pg (27.0-31.0); Mean Corpuscular Volume 74.8 fL (78.0-98.0); Mean Platelet Volume 9.1 fL (7.4-10.4); Platelet Count 310 thou/uL (130-400); RBC Distribution Width 19.2 % (11.5-14.5); Red Blood Cell (RBC) Count 3.43 mill/uL (4.20-5.40); White Blood Cell (WBC) Count 9.7 thou/uL (4.8-10.8)
[2019-12-17 08:22] LABS: Iron 15 ug/dL (50-170); Iron Binding Capacity, Total 369 mcg/dL (265-497)
[2019-12-17] MEDS: Cefepime 1 GM in Sodium Chloride 0.9% 100 ML IVPB SCH ×2 (09:07→20:52)
[2019-12-17] MEDS: Famotidine/PF 20 mg/2ml Vial SLOW IVP SCH ×2 (09:08→20:52)
--- NOTE | 2019-12-17 11:14 | PDOC.BPN ---
- Brief Progress Note Encounter Date: 12/17/19 Encounter Time: 11:13 Patient is postoperative day 1 from a laparoscopic appendectomy and laparoscopic cholecystectomy-she states she is doing well. Her original her preoperative pain is gone. This was replaced with incisional pain. She states that her pain is well controlled. Vitals are within normal limits. Abdomen-soft, appropriately tender. Incisions are clean dry and intact. Assessment-postop day 1-patient's original pain is gone. Advance diet as tolerated and discharge home. Follow-up with Dr. León in 2 weeks or so
[2019-12-17] MEDS: HYDROcodone/Acetaminophen 7.5/325 mg Tablet PO PRN ×3 (11:36→21:43)
[2019-12-17] MEDS ORDERED: Ketorolac Tromethamine 30 MG/ML VIAL IVP SCH (14:00)
--- NOTE | 2019-12-17 17:18 | PDOC.HOSPP ---
- Subjective Encounter Date: 12/17/19 Encounter Time: 12:00 Subjective: The patient still complained of severe pain. She received norco this morning 30 minutes prior to my evaluation and still had 8/10 pain. She had not received toradol yet She did eat some of her lunch but not all. She denies nausea or vomiting. She has ambulated to the bathroom some - Objective Vital Signs & Weight: Vital Signs (12 hours) Temp Pulse Resp BP Pulse Ox 12/17/19 16:05 98.0 F 69 18 116/69 94 L 12/17/19 11:44 98.4 F 83 16 125/71 92 L 12/17/19 08:21 98.2 F 70 16 112/63 94 L Weight Weight 211 lb I&O: 12/16/19 12/17/19 12/18/19 06:59 06:59 06:59 Intake Total 3534 1675 Balance 3534 1675 Result Diagrams: 12/17/19 07:34 12/16/19 08:28 Additional Labs: Accuchecks 12/17/19 12/17/19 12/17/19 15:33 10:36 06:35 POC Glucose 152 H 119 H 122 H 12/16/19 12/16/19 20:59 05:35 POC Glucose 143 H 124 H Hospitalist ROS - Review of Systems Constitutional: denies: fever, chills - Medication Medications: Active Medications Generic Name Dose Route Start Last Admin Trade Name Freq PRN Reason Stop Dose Admin Hydrocodone Bitart/Acetaminophen 1 tab 12/16/19 17:59 12/17/19 11:36 Hydrocodone/Acetaminophen 7.5/325 Mg Tablet PO 1 tab Q4H PRN Administration .SEVERE PAIN Famotidine 20 mg 12/14/19 09:00 12/17/19 09:08 Famotidine/Pf 20 Mg/2ml Vial SLOW IVP 20 mg Q12HR PADMINI Administration Sodium Chloride 1,000 mls @ 75 mls/hr 12/13/19 21:30 12/17/19 06:39 Normal Saline 0.9% IV Not Given .[id number] PADMINI Cefepime HCl 1 gm/ Sodium 100 mls @ 200 mls/hr 12/14/19 09:00 12/17/19 09:07 Chloride IVPB 100 mls Q12HR PADMINI Administration Metronidazole 500 mg/ Device 100 mls @ 100 mls/hr 12/14/19 01:00 12/17/19 09:16 IVPB 100 mls 0100,0900,1700 PADMINI Administration Morphine Sulfate 2 mg 12/16/19 18:01 12/17/19 04:10 Morphine 2 Mg/Ml Vial SLOW IVP 2 mg Q1H PRN Administration .BREAKTHROUGH Ondansetron HCl 4 mg 12/13/19 21:18 12/16/19 02:38 Ondansetron Pf 4 Mg/2 Ml Vial IVP 4 mg Q6H PRN Administration Nausea/Vomiting - Exam General Appearance: NAD, awake alert Eye: PERRL, anicteric sclera ENT: normocephalic atraumatic, no oropharyngeal lesions Neck: no JVD Heart: RRR, no murmur, no gallops, no rubs Respiratory: CTAB, no wheezes, no rales, no ronchi Gastrointestinal: soft Gastrointestinal - other findings: abdomen tender in RLQ and flank area, mild in LLQ Extremities: no cyanosis, no clubbing, no edema Skin: normal turgor, no lesions, no rashes Skin - other findings: surgical incisions seem well healed Musculoskeletal: normal tone, normal strength Psychiatric: normal affect, normal behavior, A&O x 3 Hosp A/P - Plan CT abdomen: fatty liver. Prominent lower mediastinal LN. Colonic diverticulosis. Mild prominence of appendix. Abd US: fatty liver Pelvis US: no free fluid HIDA scan: gallbladder EF 7% This is a 64 year old female with abdominal pain who was found to have biliary dyskinesia, s/p lap preethi and appendectomy Biliary dyskinesia with possible appendicitis s/p lap preethi and appendectomy POD1 - still has severe pain - ordered toradol - continue norco prn, morphine prn for severe pain - continue cefepime and flagyl Iron deficiency anemia - Hb 7. Will consider iron supplementation on discharge when pain has improved Acute hypoxic respiratory failure - possibly secondary to atelectasis. Currently on 2L nasal cannula - will obtain a chest X ray Dispo: continue PT/OT. Likely home in am
--- NOTE | 2019-12-17 17:57 | RAD ---
PORTABLE CHEST: 12/13/19 HISTORY: Hypoxia status post appendectomy. Heart size is within normal limits Pulmonary vessels appear engorged. There is some mildly increased interstitial lung changes are also seen. Slightly more focal changes within the bases. IMPRESSION: Cardiomegaly with mild vascular engorgement. Increased interstitial lung change. I am not certain how much of this may be chronic in nature versus related to some element of edema. Changes are also slig htly more confluent in the left base. I cannot exclude some associated infiltrate. Although changes m ay also be on the basis of atelectasis. POS: OFF
[2019-12-17] MEDS: Ketorolac Tromethamine 30 MG/ML VIAL IVP SCH (18:12)
[2019-12-18] MEDS: Ketorolac Tromethamine 30 MG/ML VIAL IVP SCH ×4 (00:02→18:10)
[2019-12-18] MEDS: metroNIDAZOLE 500 MG in Premix Bag 1 BAG IVPB SCH ×3 (00:03→18:09)
[2019-12-18] MEDS: Cefepime 1 GM in Sodium Chloride 0.9% 100 ML IVPB SCH (08:39)
[2019-12-18] MEDS: Famotidine/PF 20 mg/2ml Vial SLOW IVP SCH ×2 (08:46→20:18)
[2019-12-18] MEDS ORDERED: Furosemide 40 MG/4 ML VIAL SLOW IVP SCH (12:00)
[2019-12-18] MEDS ORDERED: Ferrous Sulfate 325 MG TAB PO SCH (12:30)
[2019-12-18 12:33] LABS: Hemoglobin 7.9 g/dL (12.0-16.0); Mean Corpuscular HGB CONC 30.6 g/dL (32.0-36.0); Mean Corpuscular Hemoglobin 22.9 pg (27.0-31.0); Mean Corpuscular Volume 74.7 fL (78.0-98.0); Mean Platelet Volume 9.6 fL (7.4-10.4); Platelet Count 315 thou/uL (130-400); RBC Distribution Width 19.2 % (11.5-14.5); Red Blood Cell (RBC) Count 3.46 mill/uL (4.20-5.40); White Blood Cell (WBC) Count 10.9 thou/uL (4.8-10.8)
[2019-12-18 12:44] LABS: Anion Gap 13 mmol/L (10-20); BUN (Urea Nitrogen) 4 mg/dL (9.8-20.1); Calc. Creatinine Clearance 107 mL/min (70-130); Calcium 8.2 mg/dL (7.8-10.44); Carbon Dioxide 20 mmol/L (23-31); Chloride 105 mmol/L (98-107); Estimated GFR-MDRD 72; Glucose 207 mg/dL (80-115); Potassium 3.4 mmol/L (3.5-5.1); Sodium 135 mmol/L (136-145)
[2019-12-18] MEDS ORDERED: Potassium Chloride 20 MEQ TAB PO SCH (13:15)
--- NOTE | 2019-12-18 15:34 | PDOC.BPN ---
- Brief Progress Note Encounter Date: 12/18/19 Encounter Time: 15:33 Patient is postoperative day 2 from a laparoscopic appendectomy as well as laparoscopic cholecystectomy. She states she is doing well. She is tolerating her diet. Her preoperative pain is gone. Her postoperative pain is well controlled. She has been up and ambulating. She is ready to go home. Patient has been afebrile Abdomen-soft, appropriately tender, nondistended. Incisions are clean dry and intact. Assessment-postoperative day 2-patient's preoperative pain has resolved. She is tolerating a diet. Plan-discharge home
[2019-12-18] MEDS: Ferrous Sulfate 325 MG TAB PO SCH (18:09)
--- NOTE | 2019-12-18 19:14 | PDOC.HOSPP ---
- Subjective Encounter Date: 12/18/19 Encounter Time: 09:00 Subjective: F/u: appendectomy/cholecystectomy The patient is doing well. She is tolerating a regular diet, she had bowel movements today. She has no significant abdominal pain Hypoxia: Oxygen saturation on room air was 88-92% even with deep breaths. She was given IV lasix with 1800 mL urine output for pleural effusions. The patient ambulated on room air afterwards and her saturation dropped to 82% but recovered to 92% with rest. The patient states she had COVID two months ago and had oxygen then, but returned her oxygen back last week because she didn't need it. She reports SOB and dizziness on exertion. She has a history of sleep apnea, but no COPD. Discussed with case management, patient would have to private pay to go home with oxygen . Patient does not want to go home with oxygen and wants to be off prior to discharge Anemia: Discussed with son who was concerned about hemoglobin 7.9. The patient reported dizziness while ambulating. She denied blood transfusion. She was started on iron supplementation. She reported a colonoscopy over ten years a go that was normal. She denies blood in her stools. - Objective Vital Signs & Weight: Vital Signs (12 hours) Temp Pulse Resp BP Pulse Ox 12/18/19 16:31 98.5 F 76 18 125/73 96 12/18/19 11:27 98.6 F 72 20 137/61 94 L 12/18/19 08:28 98.1 F 66 18 115/70 96 12/18/19 08:00 96 Weight Weight 211 lb I&O: 12/17/19 12/18/19 12/19/19 06:59 06:59 06:59 Intake Total 1675 1800 Balance 1675 1800 Result Diagrams: 12/18/19 12:13 12/18/19 12:13 Additional Labs: Accuchecks 12/18/19 12/18/19 12/18/19 15:09 11:17 06:04 POC Glucose 159 H 142 H 140 H 12/17/19 20:57 POC Glucose 164 H Hospitalist ROS - Review of Systems Constitutional: denies: fever, chills - Medication Medications: Active Medications Generic Name Dose Route Start Last Admin Trade Name Freq PRN Reason Stop Dose Admin Hydrocodone Bitart/Acetaminophen 1 tab 12/16/19 17:59 12/17/19 21:43 Hydrocodone/Acetaminophen 7.5/325 Mg Tablet PO 1 tab Q4H PRN Administration .SEVERE PAIN Famotidine 20 mg 12/14/19 09:00 12/18/19 08:46 Famotidine/Pf 20 Mg/2ml Vial SLOW IVP 20 mg Q12HR PADMINI Administration Ferrous Sulfate 325 mg 12/18/19 17:00 12/18/19 18:09 Ferrous Sulfate 325 Mg Tab PO 325 mg BID-WM PADMINI Administration Cefepime HCl 1 gm/ Sodium 100 mls @ 200 mls/hr 12/14/19 09:00 12/18/19 08:39 Chloride IVPB 100 mls Q12HR PADMINI Administration Metronidazole 500 mg/ Device 100 mls @ 100 mls/hr 12/14/19 01:00 12/18/19 18:09 IVPB 100 mls 0100,0900,1700 PADMINI Administration Ketorolac Tromethamine 15 mg 12/17/19 18:00 12/18/19 18:10 Ketorolac Tromethamine 30 Mg/Ml Vial IVP 12/22/19 18:01 15 mg Q6HR PADMINI Administration Morphine Sulfate 2 mg 12/16/19 18:01 12/17/19 04:10 Morphine 2 Mg/Ml Vial SLOW IVP 2 mg Q1H PRN Administration .BREAKTHROUGH Ondansetron HCl 4 mg 12/13/19 21:18 12/16/19 02:38 Ondansetron Pf 4 Mg/2 Ml Vial IVP 4 mg Q6H PRN Administration Nausea/Vomiting - Exam General Appearance: NAD, awake alert General - other findings: obese Eye: PERRL, anicteric sclera ENT: normocephalic atraumatic, no oropharyngeal lesions Neck: no JVD Heart: RRR, no murmur, no gallops, no rubs Respiratory: CTAB, no wheezes, no rales, no ronchi Gastrointestinal: soft, non-tender, non-distended, normal bowel sounds Extremities: no cyanosis, no clubbing, no edema Skin: normal turgor, no lesions, no rashes Neurological: cranial nerve grossly intact, normal sensation to touch, no focal deficits, no new deficit Hosp A/P - Plan CT abdomen: fatty liver. Prominent lower mediastinal LN. Colonic diverticulosis. Mild prominence of appendix. Abd US: fatty liver Pelvis US: no free fluid HIDA scan: gallbladder EF 7% Chest X ray 12/16: cardiomegaly with mild vascular engorgement This is a 64 year old female with abdominal pain who was found to have biliary dyskinesia, s/p lap preethi and appendectomy Biliary dyskinesia with possible appendicitis s/p lap preethi and appendectomy POD2 - pain improved . She is s/p lap preethi and appendectomy - she is on IV cefepime and flagyl. Will switch to oral cefdinir and flagyl - patient cleared from surgical standpoint to go home Acute hypoxic respiratory failure possibly secondary to pulmonary edema - IV fliuds discontinued. Patient still hypoxic on room air and ambulation. She was given IV lasix 40 mg this morning. Will give another 20 mg tonight - wean oxygen saturation to 92%. Home oxygen eval showed patient desaturated to 88% on room air at rest and 82% on exertion - consider repeat home oxygen evaluation tomorrow - continue incentive spirometry use q2 hours - check ECHO Iron deficiency anemia - Hb 7. Patient refused blood transfusion. Started on iron supplementation Fatty liver - noted on US, encouraged weight loss Dispo: anticipate dc in 24 hours if off oxygen
[2019-12-18] MEDS ORDERED: Furosemide 20 MG/2 ML VIAL SLOW IVP SCH (19:30)
[2019-12-18] MEDS: Cefdinir 300 MG CAP PO SCH (20:18)
--- NOTE | 2019-12-18 20:56 | RAD ---
PORTABLE CHEST: History: Follow up, pulmonary edema. Comparison: 12-17-2019 FINDINGS: Heart size appears borderline. The pulmonary vascular engorgement has improved as compared to the betzy or exam. No focal infiltrative process. IMPRESSION: Resolving pulmonary edema changes. POS: OFF
[2019-12-19] MEDS: Ketorolac Tromethamine 30 MG/ML VIAL IVP SCH ×4 (00:16→18:39)
[2019-12-19] MEDS: Ondansetron PF 4 MG/2 ML Vial IVP PRN (09:21)
[2019-12-19] MEDS: Ferrous Sulfate 325 MG TAB PO SCH ×2 (10:26→18:39)
[2019-12-19] MEDS: Famotidine/PF 20 mg/2ml Vial SLOW IVP SCH ×2 (10:26→20:42)
[2019-12-19] MEDS: metroNIDAZOLE 500 MG TAB PO SCH ×3 (10:26→20:42)
[2019-12-19] MEDS: Cefdinir 300 MG CAP PO SCH ×2 (10:27→20:42)
--- NOTE | 2019-12-19 11:29 | PDOC.GSPN ---
Surgery Progress Note: Subj - Subjective Narrative: Doing well. Preoperative pain has resolved. She is having minimal incisional tenderness. Tolerating her diet. Maintaining sats on room air. Incisions look good and she has only the usual appropriate postoperative tenderness. Pathology is still pending. From a surgical standpoint she is ready for discharge and can follow-up in my clinic in 2 weeks time. Surgery Progress Note: Obj - Vital signs Vital signs: Vital Signs - Most Recent Temp Pulse Resp BP Pulse Ox 98.4 F 82 16 121/70 92 L 12/19/19 07:54 12/19/19 07:54 12/19/19 07:54 12/19/19 07:54 12/19/19 07:54 Surgery Progress Note: Results - Labs Result Diagrams: 12/18/19 12:13 12/18/19 12:13 Lab results: Laboratory Results - last 12 hr 12/19/19 12/19/19 05:14 10:30 POC Glucose 140 H 187 H
[2019-12-19] MEDS: HYDROcodone/Acetaminophen 7.5/325 mg Tablet PO PRN ×2 (12:25→20:42)
--- NOTE | 2019-12-19 15:51 | PDOC.HOSPP ---
- Subjective Encounter Date: 12/19/19 Encounter Time: 09:00 Subjective: F/u: appendectomy + hypoxia The patient denies abdominal pain. SHe does report some nausea and poor appetite Her oxygen saturation was 93% on room air. When she was ambulated, her oxygen dropped to 83% on room air. She is again refusing oxygen to go home with The patient also thinks she has a yeast infection. Denies vaginal discharge. She states that there is some blood in vaginal area when she wipes. She reported to the nurse she had some burning when she urinated - Objective Vital Signs & Weight: Vital Signs (12 hours) Temp Pulse Resp BP Pulse Ox 12/19/19 15:38 98.2 F 72 14 123/71 93 L 12/19/19 11:20 98.1 F 78 14 125/68 94 L 12/19/19 08:00 94 L 12/19/19 07:54 98.4 F 82 16 121/70 92 L 12/19/19 04:00 97.6 F 72 16 128/70 92 L Weight Weight 211 lb I&O: 12/18/19 12/19/19 12/20/19 06:59 06:59 06:59 Intake Total 1800 2350 Balance 1800 2350 Result Diagrams: 12/18/19 12:13 12/18/19 12:13 Additional Labs: Accuchecks 12/19/19 12/19/19 12/18/19 10:30 05:14 20:21 POC Glucose 187 H 140 H 165 H Hospitalist ROS - Review of Systems Constitutional: denies: fever, chills - Medication Medications: Active Medications Generic Name Dose Route Start Last Admin Trade Name Freq PRN Reason Stop Dose Admin Hydrocodone Bitart/Acetaminophen 1 tab 12/16/19 17:59 12/19/19 12:25 Hydrocodone/Acetaminophen 7.5/325 Mg Tablet PO 1 tab Q4H PRN Administration .SEVERE PAIN Cefdinir 300 mg 12/18/19 21:00 12/19/19 10:27 Cefdinir 300 Mg Cap PO 300 mg BID PADMINI Administration Famotidine 20 mg 12/14/19 09:00 12/19/19 10:26 Famotidine/Pf 20 Mg/2ml Vial SLOW IVP 20 mg Q12HR PADMINI Administration Ferrous Sulfate 325 mg 12/18/19 17:00 12/19/19 10:26 Ferrous Sulfate 325 Mg Tab PO 325 mg BID-WM PADMINI Administration Ketorolac Tromethamine 15 mg 12/17/19 18:00 12/19/19 12:15 Ketorolac Tromethamine 30 Mg/Ml Vial IVP 12/22/19 18:01 15 mg Q6HR PADMINI Administration Metronidazole 500 mg 12/19/19 09:00 12/19/19 10:26 Metronidazole 500 Mg Tab PO 500 mg TID PADMINI Administration Morphine Sulfate 2 mg 12/16/19 18:01 12/17/19 04:10 Morphine 2 Mg/Ml Vial SLOW IVP 2 mg Q1H PRN Administration .BREAKTHROUGH Ondansetron HCl 4 mg 12/13/19 21:18 12/19/19 09:21 Ondansetron Pf 4 Mg/2 Ml Vial IVP 4 mg Q6H PRN Administration Nausea/Vomiting Sodium Chloride 10 ml 12/13/19 23:00 12/19/19 12:17 Flush - Normal Saline 10 Ml Syringe IVF 10 ml PRN PRN Administration Saline Flush - Exam General Appearance: NAD, awake alert General - other findings: morbidly obese Eye: PERRL, anicteric sclera ENT: normocephalic atraumatic, no oropharyngeal lesions Neck: no JVD Heart: RRR, no murmur, no gallops, no rubs Respiratory: no wheezes, no rales, no ronchi Respiratory - other findings: diminished diffusely Gastrointestinal: soft, non-tender, non-distended, normal bowel sounds Gastrointestinal - other findings: vaginal area with no significant rash or exco riation noted Extremities: no cyanosis, no clubbing, no edema Skin: normal turgor, no lesions, no rashes Neurological: cranial nerve grossly intact, normal sensation to touch, no weakness, no new deficit Musculoskeletal: normal tone, normal strength, no muscle wasting Hosp A/P - Plan CT abdomen: fatty liver. Prominent lower mediastinal LN. Colonic diverticulosis. Mild prominence of appendix. Abd US: fatty liver Pelvis US: no free fluid HIDA scan: gallbladder EF 7% Chest X ray 12/16: cardiomegaly with mild vascular engorgement ECHO: EF 55-60% , moderate MR, moderate AR. Diastolic dysfunction This is a 64 year old female with abdominal pain who was found to have biliary dyskinesia, s/p lap preethi and appendectomy Biliary dyskinesia with possible appendicitis s/p lap preethi and appendectomy POD3 - pain improved . She is s/p lap preethi and appendectomy - continue oral cefdinir and flagyl - continue zofran prn for nausea Acute hypoxic respiratory failure possibly secondary to pulmonary edema - IV fluids discontinued. Patient still hypoxic while ambulating. She got 60 mg IV lasix yesterday. REpeat chest Xray 12/17 showed improvement in effusions - she desaturated to 83% on room air today . Will replace potassium and give an other dose 20 mg IV lasix tonight when hypokalemia resolves - ECHO showed diastolic dysfunction with moderate AR, moderate MR and mild Iron deficiency anemia - Hb improved to 7.9. Continue iron supplementation. Patient refused blood transfusion. Fatty liver - noted on US, encouraged weight loss Dispo: anticipate dc in 24 hours if off oxygen
[2019-12-19 16:30] LABS: Bilirubin Negative (Negative); Blood, Urine Negative (Negative); Clarity Clear (Clear); Glucose, Urine (Dipstick) Normal (Negative); Ketone, Urine Negative (Negative); Leukocyte 250 Leu/uL (Negative); Nitrite Negative (Negative); Protein, Urine (Dipstick) 10 mg/dL (Neg-Trace); RBC/HPF 0-3 HPF (0-3); Specific Gravity, Urine 1.013 (1.002-1.036); Squamous Epithelial 0-3 HPF (0-3); Urobilinogen Normal mg/dL (Less than 2); pH, Urine 6.5 (5.0-9.0)
[2019-12-19 16:31] LABS: Bacteria/HPF 1+ HPF (None Seen)
[2019-12-19 16:32] LABS: Yeast-Budding Rare HPF (None Seen)
[2019-12-19 16:40] LABS: Anion Gap 11 mmol/L (10-20); BUN (Urea Nitrogen) 6 mg/dL (9.8-20.1); Calc. Creatinine Clearance 116 mL/min (70-130); Calcium 8.6 mg/dL (7.8-10.44); Carbon Dioxide 30 mmol/L (23-31); Chloride 97 mmol/L (98-107); Estimated GFR-MDRD 79; Glucose 139 mg/dL (80-115); Potassium 3.2 mmol/L (3.5-5.1); Sodium 135 mmol/L (136-145)
[2019-12-19] MEDS ORDERED: Potassium Chloride 20 MEQ TAB PO SCH (16:45)
[2019-12-20] MEDS: Ketorolac Tromethamine 30 MG/ML VIAL IVP SCH ×5 (00:14→23:07)
[2019-12-20] MEDS: Ferrous Sulfate 325 MG TAB PO SCH ×2 (08:40→17:21)
[2019-12-20] MEDS: Famotidine/PF 20 mg/2ml Vial SLOW IVP SCH (08:41)
[2019-12-20] MEDS: Cefdinir 300 MG CAP PO SCH ×2 (08:41→21:06)
[2019-12-20] MEDS: metroNIDAZOLE 500 MG TAB PO SCH ×3 (08:41→21:07)
--- NOTE | 2019-12-20 08:56 | PDOC.GSPN ---
Surgery Progress Note: Subj - Subjective Narrative: Patient is feeling okay. She did have to go back on the oxygen yesterday. No abdominal pain or nausea. I am going to sign off for now. From a surgical standpoint she is stable to discharge and follow-up with me in 2 weeks. Please call if there are any surgical issues or questions. Surgery Progress Note: Obj - Vital signs Vital signs: Vital Signs - Most Recent Temp Pulse Resp BP Pulse Ox 98.2 F 66 16 130/68 95 12/20/19 05:09 12/20/19 05:09 12/20/19 05:09 12/20/19 05:09 12/20/19 05:09 Surgery Progress Note: Results - Labs Result Diagrams: 12/18/19 12:13 12/19/19 16:14 Lab results: Laboratory Results - last 12 hr 12/19/19 12/20/19 20:50 05:12 POC Glucose 166 H 110 H
[2019-12-20] MEDS ORDERED: Furosemide 40 MG/4 ML VIAL SLOW IVP SCH (09:45)
[2019-12-20 10:04] LABS: Hemoglobin 9.1 g/dL (12.0-16.0); Mean Corpuscular HGB CONC 30.5 g/dL (32.0-36.0); Mean Corpuscular Hemoglobin 22.8 pg (27.0-31.0); Mean Corpuscular Volume 74.9 fL (78.0-98.0); Mean Platelet Volume 10.4 fL (7.4-10.4); Platelet Count 300 thou/uL (130-400); RBC Distribution Width 19.9 % (11.5-14.5); Red Blood Cell (RBC) Count 3.99 mill/uL (4.20-5.40); White Blood Cell (WBC) Count 11.3 thou/uL (4.8-10.8)
[2019-12-20 10:19] LABS: Anion Gap 14 mmol/L (10-20); BUN (Urea Nitrogen) 6 mg/dL (9.8-20.1); Calc. Creatinine Clearance 118 mL/min (70-130); Carbon Dioxide 25 mmol/L (23-31); Chloride 101 mmol/L (98-107); Estimated GFR-MDRD 80; Glucose 156 mg/dL (80-115); Potassium 4.2 mmol/L (3.5-5.1); Sodium 136 mmol/L (136-145)
[2019-12-20] MEDS: Ondansetron PF 4 MG/2 ML Vial IVP PRN (12:59)
--- NOTE | 2019-12-20 14:22 | PDOC.HOSPP ---
- Subjective Encounter Date: 12/20/19 Encounter Time: 09:00 Subjective: Mrs. Dubose is a 64 y.o F with s/p cholecystectomy and appendectomy POD4. She is s/p cholecystectomy for biliary dyskinesia. She reports abdominal pain rated as a 5/10 described as "soreness" primarily over her surgical scars. This is controlled with medicine. She reported three loose stools overnight, but stool samples have been unable to be collected because patient has had no further bowel movement per nursing. She also reported nausea and decreased appetite. She is able to be discharged from a surgical standpoint. Hypoxia: She reports some shortness of breath especially with movement. This morning she was 88-93% on room air. Upon ambulation, she desaturated to 83% on room air. Her saturation improved to 86-90% on 0.5L and was 86-90% on 1L as well. SHe denied dizziness ambulating. She previously disagreed to using oxygen at home but now she is considering it. However, when case management spoke to her she did not feel comfortable giving the agency her credit card jun perez, so she is now hoping she will be off oxygen again tomorrow. S - Objective Vital Signs & Weight: Vital Signs (12 hours) Temp Pulse Resp BP Pulse Ox 12/20/19 12:30 98.8 F 78 20 136/71 91 L 12/20/19 09:00 98.1 F 70 20 120/68 95 12/20/19 08:00 95 12/20/19 05:09 98.2 F 66 16 130/68 95 Weight Weight 211 lb I&O: 12/19/19 12/20/19 12/21/19 06:59 06:59 06:59 Intake Total 2350 1750 Balance 2350 1750 Result Diagrams: 12/20/19 09:50 12/20/19 09:50 Additional Labs: Accuchecks 12/20/19 12/19/19 12/19/19 05:12 20:50 15:54 POC Glucose 110 H 166 H 143 H Radiology Reviewed by me: No (12/17 suggested some pulmonary edema) Hospitalist ROS - Review of Systems Constitutional: denies: fever, chills, weakness Respiratory: reports: shortness of breath (reports some secondary to exertion). denies: cough, dry, wheezing Cardiovascular: denies: chest pain, palpitations Gastrointestinal: reports: nausea, abdominal pain, diarrhea, other (secondary to surgery). denies: vomiting, constipation Genitourinary: denies: dysuria, frequency Neurological: denies: weakness, numbness, incoordination - Medication Medications: Active Medications Generic Name Dose Route Start Last Admin Trade Name Freq PRN Reason Stop Dose Admin Acetaminophen 325 mg 12/16/19 18:00 12/20/19 11:04 Acetaminophen 325 Mg Tab PO 325 mg Q4H PRN Administration .MILD-MOD PAIN Hydrocodone Bitart/Acetaminophen 1 tab 12/16/19 17:59 12/19/19 20:42 Hydrocodone/Acetaminophen 7.5/325 Mg Tablet PO 1 tab Q4H PRN Administration .SEVERE PAIN Cefdinir 300 mg 12/18/19 21:00 12/20/19 08:41 Cefdinir 300 Mg Cap PO 300 mg BID PADMINI Administration Famotidine 20 mg 12/14/19 09:00 12/20/19 08:41 Famotidine/Pf 20 Mg/2ml Vial SLOW IVP 20 mg Q12HR PADMINI Administration Ferrous Sulfate 325 mg 12/18/19 17:00 12/20/19 08:40 Ferrous Sulfate 325 Mg Tab PO 325 mg BID-WM PADMINI Administration Ketorolac Tromethamine 15 mg 12/17/19 18:00 12/20/19 11:10 Ketorolac Tromethamine 30 Mg/Ml Vial IVP 12/22/19 18:01 15 mg Q6HR PADMINI Administration Metronidazole 500 mg 12/19/19 09:00 12/20/19 08:41 Metronidazole 500 Mg Tab PO 500 mg TID PADMINI Administration Morphine Sulfate 2 mg 12/16/19 18:01 12/17/19 04:10 Morphine 2 Mg/Ml Vial SLOW IVP 2 mg Q1H PRN Administration .BREAKTHROUGH Ondansetron HCl 4 mg 12/13/19 21:18 12/20/19 12:59 Ondansetron Pf 4 Mg/2 Ml Vial IVP 4 mg Q6H PRN Administration Nausea/Vomiting Sodium Chloride 10 ml 12/13/19 23:00 12/20/19 11:11 Flush - Normal Saline 10 Ml Syringe IVF 10 ml PRN PRN Administration Saline Flush - Exam General Appearance: NAD, awake alert Heart: RRR, no murmur, no gallops, no rubs Respiratory: negative: CTAB (mild/distant crackles in the lower lung bases) Respiratory - other findings: desat to 83 on ambulation. 92 on RA rest, 95 on .5L NC rest Gastrointestinal: soft, non-tender, non-distended, normal bowel sounds, no palpable masses, no hepatomegaly, no splenomegaly, no bruit Extremities: no edema Neurological: no new deficit Musculoskeletal: normal tone, no muscle wasting Psychiatric: normal affect, normal behavior Hosp A/P - Plan CT abdomen: fatty liver. Prominent lower mediastinal LN. Colonic div erticulosis. Mild prominence of appendix. Abd US: fatty liver Pelvis US: no free fluid HIDA scan: gallbladder EF 7% Chest X ray 12/16: cardiomegaly with mild vascular engorgement ECHO: EF 55-60% , moderate MR, moderate AR. Diastolic dysfunction This is a 64 year old female with abdominal pain who was found to have biliary dyskinesia, s/p lap preethi and appendectomy Biliary dyskinesia with possible appendicitis s/p lap preethi and appendectomy POD3 - pain improved . She is s/p lap preethi and appendectomy - continue oral cefdinir and flagyl - continue zofran prn for nausea - cleared by surgery Acute hypoxic respiratory failure possibly secondary to pulmonary edema - IV fluids discontinued. Patient still hypoxic while ambulating. Repeat chest Xray 12/17 showed improvement in effusions. She received 40 mg of Lasix IV today - she desaturated to 83% on room air today on ambulation. On rest, she was at 92% on RA, was at 9% on .5L NC. On exertion she is 86-90% with 0.5 to 1L of oxygen - will repeat chest X ray to see if pulmonary edema has resolved. ECHO showed diastolic dysfunction with moderate AR, moderate MR and mild Iron deficiency anemia - Hb improved to 9.1. Continue iron supplementation. Patient refused blood transfusion. Fatty liver - noted on US, encouraged weight loss Dispo: anticipate dc in 24 hours + or - oxygen Addendum: I have seen an examined patient with the student. Patient is indecisive about going home on oxygen. Case management is going to speak to her again this afternoon about whether she is agreeable Physical exam: mild RLQ tenderness. Diminished breath sounds bilaterally. Patient morbidly obese. No pitting edema Plan: repeat chest X ray. Consider additional diuretics if needed. Anticipate she will likely need home oxygen
[2019-12-20] MEDS: Ondansetron ODT 4 MG TAB SL SCH ×2 (19:35→23:08)
--- NOTE | 2019-12-20 20:26 | RAD ---
PORTABLE CHEST: 12/20/19 HISTORY: Hypoxia. COMPARISON: 12/18/19. Lungs appear clear of infiltrate. Heart size is upper normal and stable. No change from the exam of 12/18/19. IMPRESSION: No acute findings. POS: AGW
[2019-12-20] MEDS: Famotidine 20 MG TAB PO SCH (21:07)
[2019-12-21] MEDS: HYDROcodone/Acetaminophen 7.5/325 mg Tablet PO PRN ×2 (04:19→20:52)
[2019-12-21] MEDS: Ketorolac Tromethamine 30 MG/ML VIAL IVP SCH ×4 (05:27→23:11)
[2019-12-21] MEDS: Ondansetron ODT 4 MG TAB SL SCH ×4 (05:28→23:11)
[2019-12-21] MEDS: Cefdinir 300 MG CAP PO SCH ×2 (08:17→20:49)
[2019-12-21] MEDS: Ferrous Sulfate 325 MG TAB PO SCH ×2 (08:17→17:49)
[2019-12-21] MEDS: metroNIDAZOLE 500 MG TAB PO SCH ×3 (08:17→20:49)
[2019-12-21] MEDS: Famotidine 20 MG TAB PO SCH ×2 (08:17→20:49)
[2019-12-21 09:09] LABS: Mean Corpuscular HGB CONC 30.7 g/dL (32.0-36.0); Mean Corpuscular Hemoglobin 22.6 pg (27.0-31.0); Mean Corpuscular Volume 73.5 fL (78.0-98.0); Mean Platelet Volume 9.8 fL (7.4-10.4); Platelet Count 317 thou/uL (130-400); RBC Distribution Width 19.6 % (11.5-14.5); Red Blood Cell (RBC) Count 3.54 mill/uL (4.20-5.40); White Blood Cell (WBC) Count 9.9 thou/uL (4.8-10.8)
--- NOTE | 2019-12-21 17:38 | PDOC.HOSPP ---
- Subjective Encounter Date: 12/21/19 Encounter Time: 05:00 Subjective: The patient is doing well. No abd pain, nausea, vomiting SHe ambulated on room air and oxygen was noted to be 87 to 92%. She had no dizziness or SOB. This was checked with ear oximetry and finger oximetry. Room air she was 95%. The patient was agreeable to home oxygen - Objective Vital Signs & Weight: Vital Signs (12 hours) Temp Pulse Resp BP Pulse Ox 12/21/19 08:15 93 L 12/21/19 07:41 97.9 F 61 16 119/65 93 L Weight Weight 211 lb I&O: 12/20/19 12/21/19 12/22/19 06:59 06:59 06:59 Intake Total 1750 2520 490 Balance 1750 2520 490 Result Diagrams: 12/21/19 08:45 12/20/19 09:50 Additional Labs: Accuchecks 12/21/19 12/21/19 12/21/19 16:42 11:09 05:41 POC Glucose 157 H 164 H 130 H 12/20/19 21:11 POC Glucose 142 H Hospitalist ROS - Review of Systems Constitutional: denies: fever, chills - Medication Medications: Active Medications Generic Name Dose Route Start Last Admin Trade Name Freq PRN Reason Stop Dose Admin Acetaminophen 325 mg 12/16/19 18:00 12/20/19 11:04 Acetaminophen 325 Mg Tab PO 325 mg Q4H PRN Administration .MILD-MOD PAIN Hydrocodone Bitart/Acetaminophen 1 tab 12/16/19 17:59 12/21/19 04:19 Hydrocodone/Acetaminophen 7.5/325 Mg Tablet PO 1 tab Q4H PRN Administration .SEVERE PAIN Cefdinir 300 mg 12/18/19 21:00 12/21/19 08:17 Cefdinir 300 Mg Cap PO 300 mg BID PADMINI Administration Famotidine 20 mg 12/20/19 21:00 12/21/19 08:17 Famotidine 20 Mg Tab PO 20 mg Q12HR PADMINI Administration Ferrous Sulfate 325 mg 12/18/19 17:00 12/21/19 08:17 Ferrous Sulfate 325 Mg Tab PO 325 mg BID-WM PADMINI Administration Ketorolac Tromethamine 15 mg 12/17/19 18:00 12/21/19 11:45 Ketorolac Tromethamine 30 Mg/Ml Vial IVP 10/29/20 18:01 15 mg Q6HR PADMINI Administration Metronidazole 500 mg 12/19/19 09:00 12/21/19 15:14 Metronidazole 500 Mg Tab PO 500 mg TID PADMINI Administration Morphine Sulfate 2 mg 12/16/19 18:01 12/17/19 04:10 Morphine 2 Mg/Ml Vial SLOW IVP 2 mg Q1H PRN Administration .BREAKTHROUGH Ondansetron HCl 4 mg 12/20/19 18:00 12/21/19 11:46 Ondansetron Odt 4 Mg Tab SL 4 mg Q6HR PADMINI Administration Sodium Chloride 10 ml 12/13/19 23:00 12/20/19 17:22 Flush - Normal Saline 10 Ml Syringe IVF 10 ml PRN PRN Administration Saline Flush - Exam General Appearance: NAD, awake alert Eye: PERRL, anicteric sclera ENT: normocephalic atraumatic, no oropharyngeal lesions Neck: no JVD Heart: RRR, no murmur, no gallops, no rubs, normal peripheral pulses Respiratory: CTAB, no wheezes, no rales, no ronchi Gastrointestinal: soft, non-tender, non-distended, normal bowel sounds Extremities: no cyanosis, no clubbing, no edema Skin: normal turgor, no lesions, no rashes Hosp A/P - Plan CT abdomen: fatty liver. Prominent lower mediastinal LN. Colonic diverticulosis. Mild prominence of appendix. Abd US: fatty liver Pelvis US: no free fluid HIDA scan: gallbladder EF 7% Chest X ray 12/16: cardiomegaly with mild vascular engorgement ECHO: EF 55-60% , moderate MR, moderate AR. Diastolic dysfunction This is a 64 year old female with abdominal pain who was found to have biliary dyskinesia, s/p lap preethi and appendectomy Biliary dyskinesia with possible appendicitis s/p lap preethi and appendectomy POD3 - pain improved . She is s/p lap preethi and appendectomy - continue oral cefdinir and flagyl day 5/5 - continue zofran prn for nausea - cleared by surgery Acute hypoxic respiratory failure possibly secondary to pulmonary edema - IV fluids discontinued. Patient still hypoxic while ambulating. She received IV lasix. Repeat chest X ray 12/19 shows no significant effusion - she is still hypoxic on room air 87 to 92%. She is being set up with home oxygen, but they were unable to deliver it today. ECHO showed moderate AR/MR, diastolic dysfunction Iron deficiency anemia - Hb 8.0. Continue iron supplementation. Patient refused blood transfusion. Fatty liver - noted on US, encouraged weight loss Leukocytosis - resolved Dispo: anticipate dc in 24 hours + or - oxygen
[2019-12-22] MEDS: Ketorolac Tromethamine 30 MG/ML VIAL IVP SCH ×2 (05:28→12:13)
[2019-12-22] MEDS: Ondansetron ODT 4 MG TAB SL SCH ×2 (05:29→12:13)
[2019-12-22] MEDS: Ferrous Sulfate 325 MG TAB PO SCH (08:54)
[2019-12-22] MEDS: Cefdinir 300 MG CAP PO SCH (08:54)
[2019-12-22] MEDS: Famotidine 20 MG TAB PO SCH (08:54)
[2019-12-22] MEDS: metroNIDAZOLE 500 MG TAB PO SCH (08:54)
[2019-12-22] MEDS: HYDROcodone/Acetaminophen 7.5/325 mg Tablet PO PRN (08:54)
[2019-12-22 09:49] LABS: Hemoglobin 8.5 g/dL (12.0-16.0); Mean Corpuscular HGB CONC 30.2 g/dL (32.0-36.0); Mean Corpuscular Hemoglobin 22.7 pg (27.0-31.0); Mean Corpuscular Volume 75.4 fL (78.0-98.0); Mean Platelet Volume 9.5 fL (7.4-10.4); Platelet Count 305 thou/uL (130-400); RBC Distribution Width 19.8 % (11.5-14.5); Red Blood Cell (RBC) Count 3.75 mill/uL (4.20-5.40); White Blood Cell (WBC) Count 9.3 thou/uL (4.8-10.8)
[2019-12-22 10:05] LABS: ALT (SGPT) 11 U/L (8-55); AST (SGOT) 23 U/L (5-34); Albumin 3.5 g/dL (3.4-4.8); Alkaline Phosphatase 80 U/L (40-110); Anion Gap 12 mmol/L (10-20); BUN (Urea Nitrogen) 10 mg/dL (9.8-20.1); Bilirubin, Total 0.2 mg/dL (0.2-1.2); Calc. Creatinine Clearance 90 mL/min (70-130); Calcium 8.8 mg/dL (7.8-10.44); Carbon Dioxide 29 mmol/L (23-31); Chloride 99 mmol/L (98-107); Estimated GFR-MDRD 59; Globulin 3.6 g/dL (2.4-3.5); Glucose 226 mg/dL (80-115); Potassium 3.6 mmol/L (3.5-5.1); Protein, Total 7.1 g/dL (6.0-8.3); Sodium 136 mmol/L (136-145)
[2019-12-22 11:34] VITALS: BP 137/74; TEMP 98
--- NOTE | 2019-12-22 18:21 | PDOC.DS.DS ---
Provider - Provider Date of Admission: 12/15/19 16:26 Date of Discharge: 12/22/19 Admitting Provider: Pauline Gilbert MD Consultations: General Surgery (Dr. Ysabel León) Primary Care Physician: NO PCP PROVIDER Course - Hospital Course Hospital Course: Biliary dyskinesia with possible appendicitis s/p lap preethi and appendectomy: the patient presented with RLQ abdominal pain, nausea and vomiting. Initial CT scan showed mild prominence of appendix. Ultrasound showed no gallstones, but hepatomegaly and fatty liver. Pelvic US was normal. General surgery was consulted due to RLQ tenderness on exam. When they evaluated the patient, she had more RUQ tenderness. HIDA scan was done which showed a gallbladder EF of 7%. SHe underwent cholecystectomy and appendectomy on 12/15. Her abdominal pain has mostly resolved at the time of discharge, just has mild pain. She is tolerating a regular diet. She did have some diarrhea postoperatively which is improving. STool cultures were normal for Campylobacter, E coli and SHiga toxin. She was discharged on two more days of cefdinir and flagyl to complete a 7 day course of antibiotics. SHe was prescribed tramadol 50 mg q4 hours prn by general surgery for a few days. She should follow up with Dr. León in two weeks. Acute hypoxic respiratory failure possibly secondary to pulmonary edema: she was initially receiving IV fluids. CHest X ray 12/16 showed mild vascular engorgement. SHe was diuresed with IV lasix for a few days. Repeat chest X ray showed no significant effusion on 12/19. ECHO showed moderate AR/MR and diastolic dysfunction. SHe will be discharged with lasix 20 mg daily as needed . SHe was requiring oxygen while in the hospital. SHe desaturated to 87% while ambulating which improved to 92% with 1L of oxygen. She was set up with home oxygen for a month. It is likely that her obesity is causing some respiratory insuffiency, also probably some atelectasis. Iron deficiency anemia: Hb was 8.5 at the time of discharge. She was discharged with iron supplementation. She was advised to get outpatient colonoscopy according to her schedule. Fatty liver: noted on US, encouraged weight loss Pertinent Studies: CT abdomen: fatty liver. Prominent lower mediastinal LN. Colonic diverticulosis. Mild prominence of appendix. Abd US: fatty liver Pelvis US: no free fluid HIDA scan: gallbladder EF 7% Chest X ray 12/16: cardiomegaly with mild vascular engorgement ECHO: EF 55-60% , moderate MR, moderate AR. Diastolic dysfunction Procedures: Cholecystectomy and appendectomy Resuscitation Status: Full code - Labs Lab Results: 12/22/19 09:32 12/22/19 09:32 Abnormal Lab Results - Last 48 hrs 12/21/19 08:45: RBC 3.54 L, Hgb 8.0 L, Hct 26.0 L, MCV 73.5 L, MCH 22.6 L, MCHC 30.7 L, RDW 19.6 H 12/22/19 09:32: RBC 3.75 L, Hgb 8.5 L, Hct 28.3 L, MCV 75.4 L, MCH 22.7 L, MCHC 30.2 L, RDW 19.8 H 12/22/19 09:32: Globulin 3.6 H, Albumin/Globulin Ratio 1.0 L Microbiology - Entire Visit 12/20/19 16:39 Stool - Soft Stool Culture - Preliminary 12/20/19 16:39 Stool - Soft Escherichia coli 0157 Culture - Final 12/19/19 16:11 Urine clean catch Urine Culture - Final NO GROWTH AT 48 HOURS 12/20/19 16:39 Stool - Soft Campylobacter Antigen Assay - Final 12/20/19 16:39 Stool - Soft Shiga Toxin Test - Final 12/15/19 11:30 Stool - Soft Stool Occult Blood ([facility]) - Final - Physical Exam Vitals: Vital Signs (12 hours) Temp Pulse Resp BP Pulse Ox 12/22/19 10:46 98 F 76 18 137/74 90 L 12/22/19 07:46 97.9 F 70 18 117/58 L 90 L Weight Weight 211 lb Physical Exam: General Appearance: NAD, awake alert Eye: PERRL, anicteric sclera ENT: normocephalic atraumatic, no oropharyngeal lesions Neck: no JVD Heart: RRR, no murmur, no gallops, no rubs, normal peripheral pulses Respiratory: CTAB, no wheezes, no rales, no ronchi Gastrointestinal: soft, mild RLQ tenderness Extremities: no cyanosis, no clubbing, no edema Skin: normal turgor, no lesions, no rashes Problem - Time spent with Patient (mins): 35 Plan - Discharge Medications Prescriptions: Ferrous Sulfate [Feosol] 325 mg PO BID-WM #60 tab metroNIDAZOLE [Flagyl] 500 mg PO ONE #1 tab Furosemide 20 mg PO DAILY PRN #30 tablet PRN Reason: Edema Cefdinir [Omnicef] 300 mg PO ONE #1 cap Home Medications: Medication Instructions Recorded Confirmed Type Aspirin [Ecotrin Low Strength] 1 tab PO DAILY 12/13/19 12/13/19 History Estradiol 1 mg PO DAILY 12/13/19 12/13/19 History Glimepiride 2 mg PO BID 12/13/19 12/13/19 History Levothyroxine Sodium 150 mcg PO DAILY 12/13/19 12/13/19 History Lisinopril 2.5 mg PO DAILY 12/13/19 12/13/19 History Metoprolol Succinate 50 mg PO DAILY 12/13/19 12/13/19 History Pravastatin Sodium 40 mg PO DAILY 12/13/19 12/13/19 History Zolpidem Tartrate [Ambien] 10 mg PO HS 12/13/19 12/13/19 History Cefdinir [Omnicef] 300 mg PO ONE #1 cap 12/21/19 Rx Ferrous Sulfate [Feosol] 325 mg PO BID-WM #60 tab 12/21/19 Rx Furosemide 20 mg PO DAILY PRN #30 tablet 12/21/19 Rx metroNIDAZOLE [Flagyl] 500 mg PO ONE #1 tab 12/21/19 Rx HYDROcodone/Acetaminophen [[place] 1 - 2 each PO Q4HR PRN 12/22/19 12/22/19 History 7.5-325 Tablet] traMADol HCl [Tramadol HCl] 1 - 2 tab PO Q4HR PRN 12/22/19 12/22/19 History Allergies: Penicillins Allergy (Verified 12/20/19 01:03) sulfamethoxazole [From Bactrim] Allergy (Verified 12/20/19 01:03) trimethoprim [From Bactrim] Allergy (Verified 12/20/19 01:03) - Discharge Instructions Discharge Instructions:: DO NOT DRIVE OR OPERATE MACHINERY WHILE ON NARCOTIC PAIN MEDICATION, USE YOUR INCENTIVE SPIROMETER 10X EVERY 4 HOURS WHILE AWAKE, CALL MD'S OFFICE FOR QUESTIONS AND CONCERNS. Activity:: Activity as Tolerated, Other (no lift >20 lb x 2 wk) Nourishment:: Heart Healthy Diet - Follow up Plan Referrals: Laury León MD [Active] - 2-3 Weeks (CALL MD'S OFFICE FOR FOLLOW UP APPOINTMENT. BRING PICTURE ON FOLLOW UP DAY.) PROVIDER,NO PCP [Primary Care Provider] - Disposition: HOME Quality - Care Measures CORE MEASURES:: HF, N/A - Stroke/TIA Did you prescribe antithrombotic therapy?: No Specify reason for no DC antithrombotic therapy: Treatment not indicated Specify reason for no DC anticoagulant: Treatment not indicated
== END 2019-12-22 15:38 | disposition home or self-care (01) | DRG 417 ==
LOC: ERS 18:35 → SJJU 21:30 → OBSVTOIN 12-15 16:26
PROVIDERS: ADMIT Internal Medicine; ATTEND Internal Medicine
PROC: 3E02340 Introduction of Influenza Vaccine into Muscle, Percutaneous Approach (ICD-10-PCS; 2019-12-14)
PROC: 0FT44ZZ Resection of Gallbladder, Percutaneous Endoscopic Approach (ICD-10-PCS; principal; 2019-12-16)
PROC: 0DTJ4ZZ Resection of Appendix, Percutaneous Endoscopic Approach (ICD-10-PCS; 2019-12-16)
DX: K82.8 Other specified diseases of gallbladder (principal); J96.01 Acute respiratory failure with hypoxia; J98.11 Atelectasis; J81.1 Chronic pulmonary edema; K37 Unspecified appendicitis; D50.9 Iron deficiency anemia, unspecified; K76.0 Fatty (change of) liver, not elsewhere classified; E66.9 Obesity, unspecified; Z20.828 Contact with and (suspected) exposure to other viral communicable diseases; E11.9 Type 2 diabetes mellitus without complications; I10 Essential (primary) hypertension; F32.9 Major depressive disorder, single episode, unspecified; F17.210 Nicotine dependence, cigarettes, uncomplicated; E78.00 Pure hypercholesterolemia, unspecified; E78.5 Hyperlipidemia, unspecified; E87.6 Hypokalemia; Z68.38 Body mass index [BMI] 38.0-38.9, adult; Z23 Encounter for immunization; Z86.19 Personal history of other infectious and parasitic diseases; Z90.710 Acquired absence of both cervix and uterus; Z88.0 Allergy status to penicillin; Z88.2 Allergy status to sulfonamides; Z88.8 Allergy status to other drugs, medicaments and biological substances; Z79.84 Long term (current) use of oral hypoglycemic drugs; Z79.82 Long term (current) use of aspirin; Z79.890 Hormone replacement therapy; Z79.899 Other long term (current) drug therapy
CPT/HCPCS: 36415; 36416; 71045; 74177; 76705; 76856; 78227; 80048; 80053; 81001; 82274; 82607; 82728; 82746; 83540; 83550; 83605; 83690; 85025; 85027; 86140; 87045; 87046; 87081; 87086; 87427; 87449; 87635; 88304; 88313; 90471; 90662; 93306; 94660; 96365; 96366; 96367; 96374; 96375; 96376; A9537; G0008; G0378; J0692; J1885; J1940; J2270; J2405; J2550; J2704; J3010; J3490; J7620; Q0162; Q9967; S0028; U0003

== ENCOUNTER 2020-04-15 21:27 | Inpatient (IN) | payer MEDICARE ==
[2020-04-16] MEDS ORDERED: Acetaminophen 325 MG TAB PO PRN (01:03)
--- NOTE | 2020-04-16 01:11 | PDOC.HHP ---
Hospitalist HPI Blood per rectum History of Present Illness: 65-year-old female with past medical history of HTN, diabetes mellitus, obesity, status post lap preethi and appendectomy 5 months developed blood per rectum while wiping earlier today. She admits to increasing weakness but denies any dizziness. She denies any nausea vomiting. She admits to new onset right lower quadrant abdominal pain nonradiating. She described pain at about 6-8 out of 10 and appears to be colicky in pattern. She has not had similar symptoms before. She presented an outside facility and was noted with low hemoglobin of 6.9. She was transferred here. CT scan today shows evidence of sigmoid diverticulosis but no evidence of diverticulitis. She denies any fever or chills. She has been admitted for presumed diverticulitis with anemia of lower GI bleed. Allergies/Adverse Reactions: Allergy/AdvReac Type Severity Reaction Status Date / Time Penicillins Allergy Verified 12/20/19 01:03 sulfamethoxazole Allergy Verified 12/20/19 01:03 [From Bactrim] trimethoprim [From Bactrim] Allergy Verified 12/20/19 01:03 Home Medications: Medication Instructions Recorded Confirmed Type Aspirin [Ecotrin Low Strength] 1 tab PO DAILY 12/13/19 12/13/19 History Estradiol 1 mg PO DAILY 12/13/19 12/13/19 History Glimepiride 2 mg PO BID 12/13/19 12/13/19 History Levothyroxine Sodium 150 mcg PO DAILY 12/13/19 12/13/19 History Lisinopril 2.5 mg PO DAILY 12/13/19 12/13/19 History Metoprolol Succinate 50 mg PO DAILY 12/13/19 12/13/19 History Pravastatin Sodium 40 mg PO DAILY 12/13/19 12/13/19 History Zolpidem Tartrate [Ambien] 10 mg PO HS 12/13/19 12/13/19 History Cefdinir [Omnicef] 300 mg PO ONE #1 cap 12/21/19 Rx Ferrous Sulfate [Feosol] 325 mg PO BID-WM #60 tab 12/21/19 Rx Furosemide 20 mg PO DAILY PRN #30 tablet 12/21/19 Rx metroNIDAZOLE [Flagyl] 500 mg PO ONE #1 tab 12/21/19 Rx HYDROcodone/Acetaminophen [[place] 1 - 2 each PO Q4HR PRN 12/22/19 12/22/19 History 7.5-325 Tablet] traMADol HCl [Tramadol HCl] 1 - 2 tab PO Q4HR PRN 12/22/19 12/22/19 History Past History: PMHx: Hypertension, diabetes mellitus Hyperlipidemia Obesity Moderate AR/MR regurgitation Diastolic CHF PSHx: Lap preethi, lap appendectomy FHx: Sister with DC, mom with CVA Social: No history of alcohol or illicit drug use she admits to half a pack per day tobacco use -counseling on cessation done Hospitalist HPI ROS All other systems reviewed; all pertinent +/- noted in HPI/Subj Hospitalist Exam Vitals: Obese middle-aged woman General Appearance: NAD, awake alert Eye: PERRL, anicteric sclera ENT: normocephalic atraumatic, dry oral mucosa Neck: supple, symmetric Heart: RRR, no murmur Respiratory: CTAB, no wheezes Gastrointestinal: soft, non-tender, non-distended, no palpable masses, tender to palpation (Right lower quadrant) Extremities: no cyanosis, no clubbing Skin: normal turgor, no lesions Neurological: cranial nerve grossly intact, no focal deficits Musculoskeletal: normal tone, normal strength Psychiatric: normal affect, normal behavior, A&O x 3 Hospitalist Results Lab results: Laboratory Last Values Blood Type O POSITIVE 04/15/20 22:26 Antibody Screen NEGATIVE 04/15/20 22:26 Crossmatch See Detail 04/15/20 22:26 Hospitalist H&P A/P (1) Abdominal pain, right lower quadrant Code(s): R10.31 - RIGHT LOWER QUADRANT PAIN Status: Acute (2) Anemia Code(s): D64.9 - ANEMIA, UNSPECIFIED Status: Acute (3) Diabetes mellitus type 2 in obese Code(s): E11.69 - TYPE 2 DIABETES MELLITUS WITH OTHER SPECIFIED COMPLICATION; E66.9 - OBESITY, UNSPECIFIED Status: Chronic (4) HLD (hyperlipidemia) Code(s): E78.5 - HYPERLIPIDEMIA, UNSPECIFIED Status: Chronic (5) HTN (hypertension) Code(s): I10 - ESSENTIAL (PRIMARY) HYPERTENSION Status: Chronic Plan: Presumed sigmoid diverticulosis/diverticulitisstart empirical antibiotics with Levaquin and Flagyl Obtain stool for occult blood We will consult GI for possible colonoscopy We will place patient on clear liquid diet for now Anemiapresumed due to GI bleed, follow GI evaluation Follow H&H every 12 We will transfuse 2 unit PRBC now Hypertensioncontrolled Diabetes mellitusstart insulin sliding scale Hold Amaryl for now since on clear liquid diet DVT prophylaxiswe will do SCDs, avoid heparin for now since low H&H Chronic tobacco usecessation advised, per start nicotine patch History of diastolic CHFdose Lasix IV x1 between PRBC today Avoid fluid overload Previous moderate AR/MR noted Advance directivefull code Dispositionpossible hospital stay for more than 48 hours
[2020-04-16] MEDS ORDERED: Furosemide 40 MG/4 ML VIAL SLOW IVP SCH (01:15)
[2020-04-16] MEDS ORDERED: HumaLOG 300 UNITS/3 ML VIAL SC PRN (01:15)
[2020-04-16] MEDS ORDERED: Sodium Chloride 0.9% 1,000 ML IV SCH (01:15)
[2020-04-16] MEDS ORDERED: Zolpidem Tartrate 5 MG TAB ONE (02:45)
[2020-04-16] MEDS ORDERED: Levofloxacin 500 mg/D5W 100 ml Premix Bag ONE (02:45)
[2020-04-16] MEDS ORDERED: Furosemide 40 MG/4 ML VIAL ONE (02:45)
[2020-04-16] MEDS ORDERED: Nicotine 14 MG PATCH ONE (03:21)
[2020-04-16] MEDS: Nicotine 14 MG PATCH TD SCH (03:27)
[2020-04-16] MEDS ORDERED: metroNIDAZOLE 500 MG/100 ML BAG ONE ×2 (05:48→12:41)
[2020-04-16] MEDS: metroNIDAZOLE 500 MG in Premix Bag 1 BAG IVPB SCH ×2 (06:00→13:59)
[2020-04-16 06:43] LABS: #Basophils 0.1 thou/uL (0.0-0.2); #Eosinphils 0.2 thou/uL (0.0-0.7); #Lymphocytes 3.4 thou/uL (1.20-3.40); #Monocytes 0.4 thou/uL (0.11-0.59); %Basophils 1.1 % (0.0-1.0); %Eosinophils 2.7 % (0.0-10.0); %Lymphocytes 36.9 % (21.0-51.0); %Monocytes 4.7 % (0.0-10.0); %Neutrophils 54.6 % (42.0-75.0); Hemoglobin 8.2 g/dL (12.0-16.0); Mean Corpuscular HGB CONC 31.5 g/dL (32.0-36.0); Mean Corpuscular Hemoglobin 22.2 pg (27.0-31.0); Mean Corpuscular Volume 70.6 fL (78.0-98.0); Mean Platelet Volume 10.2 fL (7.4-10.4); Platelet Count 326 thou/uL (130-400); RBC Distribution Width 20.3 % (11.5-14.5); White Blood Cell (WBC) Count 9.2 thou/uL (4.8-10.8)
[2020-04-16 06:51] LABS: ALT (SGPT) 22 U/L (8-55); AST (SGOT) 37 U/L (5-34); Alkaline Phosphatase 76 U/L (40-110); Anion Gap 13 mmol/L (10-20); BUN (Urea Nitrogen) 8 mg/dL (9.8-20.1); Bilirubin, Total 0.3 mg/dL (0.2-1.2); Calc. Creatinine Clearance 69 mL/min (70-130); Calcium 8.8 mg/dL (7.8-10.44); Carbon Dioxide 26 mmol/L (23-31); Chloride 101 mmol/L (98-107); Globulin 3.8 g/dL (2.4-3.5); Glucose 125 mg/dL (80-115); Potassium 3.3 mmol/L (3.5-5.1); Protein, Total 7.8 g/dL (5.8-8.1); Sodium 137 mmol/L (136-145)
[2020-04-16 07:40] LABS: Anisocytosis SLIGHT = 6-15 cells (100X) (0-5/hpf); Hypochromia SLIGHT = 6-15 cells (100X) (0-5/hpf); MDiff Complete? YES; Platelet Morphology Comment Appears Adequate; Polychromasia SLIGHT = 2-3 cells (100X) (0-2/hpf)
[2020-04-16] MEDS ORDERED: Ferrous Sulfate 325 MG TAB PO SCH (08:00)
[2020-04-16] MEDS ORDERED: Potassium Chloride 20 MEQ TAB PO SCH (08:00)
[2020-04-16] MEDS ORDERED: Potassium Chloride 20 MEQ TAB ONE (08:11)
[2020-04-16] MEDS: Pantoprazole 40 MG VIAL IVP SCH ×2 (09:00→21:01)
[2020-04-16 09:26] LABS: Microcytosis SLIGHT = 6-15 cells (100X) (0-5/hpf)
--- NOTE | 2020-04-16 10:02 | CON ---
DATE OF CONSULTATION: CONSULTING PHYSICIAN: Sumaya Huang MD REQUESTING PHYSICIAN: Gerber Lui MD REASON FOR CONSULTATION: Acute kidney injury. IMPRESSION: Acute kidney injury. This is likely hemodynamically mediated in the context of gastrointestinal bleed. PLAN: 1. Hemodynamic support and renally dose all medications should be enough for her to improve the renal function in this patient. 2. Avoid potentially nephrotoxic agents. 3. Transfuse on p.r.n. basis. HISTORY OF PRESENT ILLNESS: History is that of female patient with a baseline creatinine of about 0.95, who presented here with blood per rectum and noted with elevated creatinine of 1.51, above her baseline creatinine. The patient does have a history of hypertension, diabetes mellitus, and obesity. The patient on presentation at the outside facility was noted with a hemoglobin of 6.[address] scan evidence of sigmoid diverticulosis. As a result of the elevated creatinine of 1.5, decision was taken to involve Renal in the management of this case. PAST MEDICAL HISTORY: As documented in the body of the history. FAMILY HISTORY: No family history of kidney disease. SOCIAL HISTORY: No alcohol. No tobacco. No illicit drug use. REVIEW OF SYSTEMS: As documented in the body of the history. All the other systems were reviewed and found not to be significantly related to present illness. PHYSICAL EXAMINATION: GENERAL: The patient was found not to be in any obvious distress. Hemodynamically stable. HEENT: Unremarkable. CARDIOVASCULAR SYSTEM: First and second heart sounds were heard. RESPIRATORY SYSTEM: Clear to auscultation. DIGESTIVE SYSTEM: Revealed a benign abdomen with positive bowel sounds. EXTREMITIES: No peripheral edema. SKIN: No new gross rash. LYMPHATICS: No peripheral lymphadenopathy. LABORATORY INVESTIGATION: Showed a hemoglobin of 8.2, and chemistry showed a creatinine of 1.51. SUMMARY: This is a 65-year-old female patient, who presented here with gastrointestinal bleed and noted with acute kidney injury, likely hemodynamically mediated in the context of gastrointestinal bleed. Thank you for this consultation. We will follow with you. Job ID: [id number]
[2020-04-16 12:01] LABS: SARS-CoV-2 PCR by NAA Not Detected (NotDetected)
--- NOTE | 2020-04-16 13:47 | PDOC.HOSPP ---
- Subjective Encounter Date: 04/16/20 Encounter Time: 10:45 Subjective: Patient seen in the ER holding area. She is little nauseated. She is wondering whether she will be getting any procedures today. I explained the care plan of IV fluid clear liquid diet and antibiotics as well as analgesic as needed. Unlikely she will get endoscopy study as risk for perforation. - Objective Vital Signs & Weight: Weight Weight 219 lb 15.988 oz Result Diagrams: 04/16/20 06:18 04/16/20 06:18 Additional Labs: Accuchecks 04/16/20 07:53 POC Glucose 128 H Hospitalist ROS - Medication Medications: Active Medications Generic Name Dose Route Start Last Admin Trade Name Freq PRN Reason Stop Dose Admin Ferrous Sulfate 325 mg 04/16/20 08:00 04/16/20 08:16 Ferrous Sulfate 325 Mg Tab PO 325 mg BID-WM PADMINI Administration Levofloxacin 500 mg/ Device 100 mls @ 100 mls/hr 04/16/20 02:00 04/16/20 03:12 IVPB 100 mls Q24HR PADMINI Administration Metronidazole 500 mg/ Device 100 mls @ 100 mls/hr 04/16/20 06:00 04/16/20 06:00 IVPB 100 mls Q8HR PADMINI Administration Nicotine 14 mg 04/16/20 02:00 04/16/20 03:27 Nicotine 14 Mg Patch TD 14 mg Q24HR PADMINI Administration Pantoprazole Sodium 40 mg 04/16/20 09:00 04/16/20 09:00 Pantoprazole 40 Mg Vial IVP 40 mg Q12HR PADMINI Administration Hospitalist Exam Vitals: Weight Weight 219 lb 15.988 oz General Appearance: NAD, awake alert Eye: PERRL, anicteric sclera ENT: normocephalic atraumatic Neck: supple Heart: RRR, normal peripheral pulses Respiratory: CTAB, normal chest expansion Gastrointestinal: soft, normal bowel sounds, no palpable masses, tender to palpation, distended Gastrointestinal - other findings: Right quadrant tenderness Neurological: no focal deficits Musculoskeletal: generalized weakness Psychiatric: A&O x 3 Hosp A/P - Plan 65-year-old female presented at outside facility with a hemoglobin of 6.[address] showing sigmoid diverticulosis. Abdominal pain, right lower quadrant Code(s): R10.31 - RIGHT LOWER QUADRANT PAIN Status: Acute Clinically patient has sigmoid diverticulitis LFTs in the normal range GI is consulted Status post 2 unit of packed RBCs Hemoglobin improved to 8.2 from 6.9 IV Protonix twice a day Levaquin and Flagyl DC the ferrous sulfate (2) acute blood loss anemia secondary to possible sigmoid diverticulosis Code(s): D64.9 - ANEMIA, UNSPECIFIED Status: Acute Follow H&H every 12 transfuse 2 unit PRBC now (3) Diabetes mellitus type 2 in obese Code(s): E11.69 - TYPE 2 DIABETES MELLITUS WITH OTHER SPECIFIED COMPLICATION; E66.9 - OBESITY, UNSPECIFIED Status: Chronic (4) HLD (hyperlipidemia) Code(s): E78.5 - HYPERLIPIDEMIA, UNSPECIFIED Status: Chronic (5) HTN (hypertension) Code(s): I10 - ESSENTIAL (PRIMARY) HYPERTENSION Status: Chronic Hypertensioncontrolled Diabetes mellitusstart insulin sliding scale Hold Amaryl for now since on clear liquid diet DVT prophylaxiswe will do SCDs, avoid heparin for now since low H&H Chronic tobacco usecessation advised, per start nicotine patch History of diastolic CHF Stable Previous moderate AR/MR noted Advance directivefull code On clear liquid diet Covid negative
[2020-04-16] MEDS ORDERED: Ondansetron PF 4 MG/2 ML Vial ONE (15:38)
[2020-04-16] MEDS: Ondansetron PF 4 MG/2 ML Vial IVP PRN ×2 (16:13→21:13)
[2020-04-16] MEDS ORDERED: GoLYTELY 4,000 ml Bottle PO SCH (19:30)
[2020-04-16 20:08] VITALS: BMI 38.9
[2020-04-16] MEDS: Zolpidem Tartrate 5 MG TAB PO SCH (21:01)
[2020-04-16] MEDS: HYDROcodone/Acetaminophen 7.5/325 mg Tablet PO PRN (21:01)
--- NOTE | 2020-04-16 23:14 | CON ---
DATE OF CONSULTATION: 04/16/2020 CHIEF COMPLAINT: Blood in the stool. HISTORY OF PRESENT ILLNESS: Ms. Dubose is a 65-year-old woman who came to the hospital yesterday after she noted a streak of red blood on the toilet paper. She has had some chronic pain in the right lower abdomen to right upper abdomen. She underwent cholecystectomy and appendectomy for that back in November of 2019; however, her pain is persisted. She had some nausea with vomiting this morning, but no blood in the emesis. Her pain is moderately severe and sometimes radiates around toward her back. She was found to have severe anemia and GI was consulted to further evaluate this. PAST MEDICAL HISTORY: Diabetes mellitus type 2, hypertension, hyperlipidemia, obesity, anemia, aortic and mitral regurgitation, diastolic CHF. PAST SURGICAL HISTORY: Laparoscopic cholecystectomy and appendectomy, both performed at the same time in November of 2019. FAMILY HISTORY: Negative for GI malignancy. SOCIAL HISTORY: No alcohol. She did smoke in the past. No drugs. ALLERGIES: PENICILLIN, SULFA, TRIMETHOPRIM. MEDICATIONS: Currently in the hospital include; 1. Levofloxacin and metronidazole. 2. Nicotine patch. 3. Pantoprazole. 4. Ambien. Prior to admission, she was on; 1. Aspirin. 2. Ferrous sulfate. 3. Furosemide. 4. Glimepiride. 5. Levothyroxine. 6. Lisinopril. 7. Metoprolol. 8. Pravastatin. REVIEW OF SYSTEMS: Negative x10 systems reviewed except as stated in History of Present Illness. PHYSICAL EXAMINATION: VITAL SIGNS: Temperature 98.0, pulse 76, blood pressure 137/74, oxygen saturation 90% to 94%. COVID test was negative. GENERAL: She is alert and oriented x3. HEENT: Eyes have no scleral icterus. Oropharynx is clear without lesions. No cervical or supraclavicular lymphadenopathy. LUNGS: Clear to auscultation bilaterally. HEART: Regular rate and rhythm without murmur. ABDOMEN: Soft, tender in the right lower abdomen without guarding. Bowel sounds are active. She is nontender in the rest of the abdomen. EXTREMITIES: No lower extremity edema. LABORATORY DATA: White blood cell count 9.2, hemoglobin 8.2, platelets 326, creatinine 1.28, bilirubin 0.3, AST 37, ALT 22, alkaline phosphatase 76, albumin 4.0. Please note that she was in the hallway in the ER when I examined her. Her MCV is 70.6. IMPRESSION: 1. Microcytic anemia status post 1 unit transfusion. Likely iron deficiency anemia. I will request iron studies. 2. Gastrointestinal bleed. She really only had a streak of red blood on the toilet paper described yesterday. She does not appear to be having a significant overt bleed at this time. 3. Chronic right-sided abdominal pain and nausea. She has had these symptoms for months and failed to improve following cholecystectomy and appendectomy. Rule out colon or gastric or duodenal malignancy or peptic ulcer. RECOMMENDATIONS: 1. Check iron studies. 2. Continue proton pump inhibitor. 3. I do not see any indication for antibiotics at this time as her CT did not show signs of acute diverticulitis and she does not have significant focal tenderness. Her white blood cell count is normal, and her pain has really been persistent for months. I will stop her antibiotics at this point. 4. EGD and colonoscopy tomorrow if she can get up to a room to do a bowel prep tonight. Otherwise, she can prep tomorrow for a scope on Thursday. Job ID: [id number]
[2020-04-16] MEDS ORDERED: Promethazine HCl 25 MG in Sodium Chloride 0.9% 50 ML IVPB SCH (23:45)
[2020-04-17] MEDS: Nicotine 14 MG PATCH TD SCH (02:00)
[2020-04-17] MEDS: Levothyroxine 150 MCG TAB PO SCH (05:31)
[2020-04-17 06:41] LABS: #Basophils 0.1 thou/uL (0.0-0.2); #Eosinphils 0.2 thou/uL (0.0-0.7); #Lymphocytes 2.8 thou/uL (1.20-3.40); #Monocytes 0.4 thou/uL (0.11-0.59); #Neutrophils 4.9 thou/uL (1.40-6.50); %Basophils 0.6 % (0.0-1.0); %Lymphocytes 33.5 % (21.0-51.0); %Monocytes 5.3 % (0.0-10.0); %Neutrophils 58.6 % (42.0-75.0); Mean Corpuscular HGB CONC 31.6 g/dL (32.0-36.0); Mean Corpuscular Hemoglobin 22.8 pg (27.0-31.0); Mean Corpuscular Volume 72.2 fL (78.0-98.0); Platelet Count 295 thou/uL (130-400); RBC Distribution Width 20.4 % (11.5-14.5); Red Blood Cell (RBC) Count 3.49 mill/uL (4.20-5.40); White Blood Cell (WBC) Count 8.4 thou/uL (4.8-10.8)
[2020-04-17 07:04] LABS: Anion Gap 11 mmol/L (10-20); BUN (Urea Nitrogen) 9 mg/dL (9.8-20.1); Calc. Creatinine Clearance 67 mL/min (70-130); Calcium 8.9 mg/dL (7.8-10.44); Carbon Dioxide 27 mmol/L (23-31); Chloride 100 mmol/L (98-107); Glucose 122 mg/dL (80-115); Iron 23 ug/dL (50-170); Iron Binding Capacity, Total 463 mcg/dL (265-497); Potassium 3.4 mmol/L (3.5-5.1); Sodium 135 mmol/L (136-145)
[2020-04-17] MEDS: Pantoprazole 40 MG VIAL IVP SCH ×2 (08:24→20:41)
[2020-04-17] MEDS ORDERED: FLU VACC QS2020-21(65YR UP)/PF 240 MCG/0.7 ML SYRINGE IM ONE (09:00)
[2020-04-17] MEDS ORDERED: Lidocaine 1% PF 5 ML VIAL ONE (09:41)
[2020-04-17] MEDS ORDERED: PROPOFOL 200 MG/20 ML VIAL ONE (09:41)
--- NOTE | 2020-04-17 11:21 | PRG ---
DATE OF SERVICE: 04/17/2020 OBJECTIVE: VITAL SIGNS: Afebrile, temperature 97.7, pulse 63, respiratory rate of 18, O2 saturations 93%, blood pressure 100/58. HEENT: Unremarkable. CARDIOVASCULAR SYSTEM: First and second heart sounds were heard. RESPIRATORY SYSTEM: Clear to auscultation. DIGESTIVE SYSTEM: Revealed a benign abdomen. Positive bowel sounds. EXTREMITIES: No peripheral edema. SKIN: No new gross rash. LYMPHATICS: No peripheral lymphadenopathy. LABORATORY INVESTIGATION: Showed a hemoglobin of 8.0. Chemistry showed a creatinine of 1.28, BUN of 9, and potassium of 3.4. IMPRESSION: 1. Acute on chronic kidney disease. 2. Mild hypokalemia as well as mild hyponatremia. 3. Gastrointestinal bleed. PLAN: 1. Continue current renal supportive measures. Renally dose all medications. 2. GI bleed management per the GI team. 3. Further management to be dependent on the clinical course. Job ID: [id number]
--- NOTE | 2020-04-17 11:47 | OP ---
DATE OF PROCEDURE: 04/17/2020 ARMHOLE RAISER LOCKSTITCH SURGEON: None. PROCEDURES PERFORMED: 1. Esophagogastroduodenoscopy, diagnostic. 2. Colonoscopy with snare polypectomy. INDICATIONS: 1. Iron deficiency anemia. 2. Rectal bleeding. 3. Chronic right upper quadrant pain. 4. Chronic right lower quadrant pain. MEDICATIONS: See Anesthesia record. FINDINGS: After discussion of the risks, benefits, and alternatives of the procedure, informed consent was obtained and witnessed. Pre-endoscopic cardiopulmonary examination was satisfactory. Time-out was performed before sedation was achieved. Sedation was achieved with Anesthesia assistance in the endoscopy unit. A Pentax adult upper endoscope was placed into the oropharynx and passed through the cricopharyngeus under direct visualization. The esophageal mucosa appeared normal throughout with a normal-appearing Z-line. The endoscope was advanced into the stomach. Forward and retroflexed views of the entire gastric mucosa were obtained. The gastric mucosa was normal throughout. The endoscope was advanced beyond the pylorus and into the first and second portions of the duodenum, which also appeared normal. The upper endoscope was completely withdrawn and the patient was repositioned. Digital rectal exam was performed, which was unremarkable. A Pentax adult colonoscope was inserted into the anus and passed forward to the cecum in the usual fashion. The cecal base was identified by the appendiceal orifice as well as the ileocecal valve. The terminal ileum was intubated and the ileal mucosa appeared normal. The colonoscope was slowly withdrawn in a gradual and circumferential manner with careful examination of the entire colonic mucosa. The quality of the prep was good. The colon was quite tortuous, particularly in the sigmoid area. The mucosa appeared normal throughout the entire colon. There was no evidence of any inflammation. No evidence of any bleeding lesion. There was heavy diverticulosis within the sigmoid colon. There was a 2-mm hyperplastic-appearing rectal polyp, which was completely removed with cold snare and retrieved for pathology. Retroflexion in the rectum demonstrated some internal hemorrhoids. The colonoscope was completely withdrawn and the patient allowed to recover. The patient tolerated the procedure well. There were no immediate postprocedure complications. IMPRESSION: 1. Normal esophagogastroduodenoscopy. 2. Heavy sigmoid diverticulosis, with no evidence of diverticulitis. 3. Tortuous colon. 4. A 2-mm hyperplastic-appearing rectal polyp, completely removed with cold snare and retrieved for pathology. 5. Internal hemorrhoids. RECOMMENDATIONS: 1. Advance diet. 2. Follow up pathology on the rectal polyp, if it was hyperplastic, colonoscopy can be repeated for screening in 10 years. If it was an adenoma, repeat colonoscopy in 5 years. 3. Follow up in the Outpatient GI [facility] with either Dr. Telles or his physician assistant credit manager. At that time, outpatient small bowel capsule endoscopy could be considered, to complete the GI workup for the iron deficiency as well as further evaluate ongoing chronic right-sided abdominal pain. GI will sign off. Please call anytime with questions or concerns. Job ID: [id number]
--- NOTE | 2020-04-17 16:13 | PDOC.HOSPP ---
- Subjective Encounter Date: 04/17/20 Encounter Time: 16:00 Subjective: Patient seen after the endoscopy study done. Starting diet. - Objective Vital Signs & Weight: Vital Signs (12 hours) Temp Pulse Resp BP BP Pulse Ox 04/17/20 15:46 98.3 F 75 16 103/61 95 04/17/20 15:11 70 104/56 L 97 04/17/20 11:20 97.3 F L 65 94/58 L 95 04/17/20 08:30 95 04/17/20 08:20 98.1 F 57 L 16 113/55 L 95 04/17/20 05:00 97.7 F 63 18 100/50 L 93 L Weight Admit Weight 219 lb 15.988 oz Weight 212 lb 9.6 oz I&O: 04/16/20 04/17/20 04/18/20 06:59 06:59 06:59 Intake Total 1050 Output Total 100 Balance 950 Result Diagrams: 04/17/20 06:07 04/17/20 06:07 Additional Labs: Accuchecks 04/17/20 04/17/20 04/16/20 11:27 05:36 21:16 POC Glucose 116 H 132 H 125 H Hospitalist ROS - Medication Medications: Active Medications Generic Name Dose Route Start Last Admin Trade Name Freq PRN Reason Stop Dose Admin Hydrocodone Bitart/Acetaminophen 1 tab 04/16/20 01:03 04/16/20 21:01 Hydrocodone/Acetaminophen 7.5/325 Mg Tablet PO 1 tab Q4H PRN Administration Moderate Pain (4-6) Levothyroxine Sodium 150 mcg 04/17/20 06:00 04/17/20 05:31 Levothyroxine 150 Mcg Tab PO 150 mcg 0600 PADMINI Administration Metoprolol Succinate 50 mg 04/17/20 09:00 04/17/20 05:31 Metoprolol Succinate Xl 50 Mg Tab PO 50 mg DAILY PADMINI Administration Nicotine 14 mg 04/16/20 02:00 04/17/20 02:00 Nicotine 14 Mg Patch TD 14 mg Q24HR PADMINI Administration Ondansetron HCl 4 mg 04/16/20 15:59 04/16/20 21:13 Ondansetron Pf 4 Mg/2 Ml Vial IVP 4 mg Q6H PRN Administration Nausea/Vomiting Pantoprazole Sodium 40 mg 04/16/20 09:00 04/17/20 08:24 Pantoprazole 40 Mg Vial IVP 40 mg Q12HR PADMINI Administration Zolpidem Tartrate 10 mg 04/16/20 21:00 04/16/20 21:01 Zolpidem Tartrate 5 Mg Tab PO 10 mg HS PADMINI Administration Hospitalist Exam Vitals: Vital Signs (12 hours) Temp Pulse Resp BP BP Pulse Ox 04/17/20 15:46 98.3 F 75 16 103/61 95 04/17/20 15:11 70 104/56 L 97 04/17/20 11:20 97.3 F L 65 94/58 L 95 04/17/20 08:30 95 04/17/20 08:20 98.1 F 57 L 16 113/55 L 95 04/17/20 05:00 97.7 F 63 18 100/50 L 93 L Weight Admit Weight 219 lb 15.988 oz Weight 212 lb 9.6 oz General Appearance: NAD, awake alert Eye: PERRL ENT: normocephalic atraumatic Neck: supple Heart: RRR, normal peripheral pulses Respiratory: CTAB, normal chest expansion Gastrointestinal: soft, no palpable masses Extremities: 1+ LE edema Neurological: no focal deficits Psychiatric: A&O x 3 Hosp A/P - Plan 65-year-old female presented at outside facility with a hemoglobin of 6.[address] showing sigmoid diverticulosis. Abdominal pain, right lower quadrant Code(s): R10.31 - RIGHT LOWER QUADRANT PAIN Status: Acute Clinically patient has sigmoid diverticulitis LFTs in the normal range GI is consulted Status post 2 unit of packed RBCs Hemoglobin improved to 8.2 from 6.9 IV Protonix twice a day Levaquin and Flagyl DC the ferrous sulfate (2) acute blood loss anemia secondary to possible sigmoid diverticulosis Code(s): D64.9 - ANEMIA, UNSPECIFIED Status: Acute Follow H&H every 12 transfuse 2 unit PRBC now (3) Diabetes mellitus type 2 in obese Code(s): E11.69 - TYPE 2 DIABETES MELLITUS WITH OTHER SPECIFIED COMPLICATION; E66.9 - OBESITY, UNSPECIFIED Status: Chronic (4) HLD (hyperlipidemia) Code(s): E78.5 - HYPERLIPIDEMIA, UNSPECIFIED Status: Chronic (5) HTN (hypertension) Code(s): I10 - ESSENTIAL (PRIMARY) HYPERTENSION Status: Chronic Hypertensioncontrolled Diabetes mellitusstart insulin sliding scale Hold Amaryl for now since on clear liquid diet DVT prophylaxiswe will do SCDs, avoid heparin for now since low H&H Chronic tobacco usecessation advised, per start nicotine patch History of diastolic CHF Stable Previous moderate AR/MR noted Advance directivefull code On clear liquid diet Covid negative status post EGD and colonoscopy follow-up with the GI clinic for the polyp result. Start the diet if tolerated possible discharge tomorrow
[2020-04-17] MEDS: HYDROcodone/Acetaminophen 7.5/325 mg Tablet PO PRN (18:42)
[2020-04-17] MEDS: Zolpidem Tartrate 5 MG TAB PO SCH (20:41)
[2020-04-18] MEDS: Nicotine 14 MG PATCH TD SCH ×2 (02:30→23:38)
[2020-04-18] MEDS: Levothyroxine 150 MCG TAB PO SCH (05:45)
[2020-04-18 07:21] LABS: #Basophils 0.1 thou/uL (0.0-0.2); #Eosinphils 0.5 thou/uL (0.0-0.7); #Lymphocytes 3.5 thou/uL (1.20-3.40); #Monocytes 0.4 thou/uL (0.11-0.59); #Neutrophils 3.8 thou/uL (1.40-6.50); %Eosinophils 5.8 % (0.0-10.0); %Lymphocytes 42.1 % (21.0-51.0); %Monocytes 5.1 % (0.0-10.0); %Neutrophils 46.1 % (42.0-75.0); Hemoglobin 7.9 g/dL (12.0-16.0); Mean Corpuscular HGB CONC 30.7 g/dL (32.0-36.0); Mean Corpuscular Hemoglobin 22.4 pg (27.0-31.0); Mean Corpuscular Volume 73.1 fL (78.0-98.0); Mean Platelet Volume 9.7 fL (7.4-10.4); Platelet Count 293 thou/uL (130-400); RBC Distribution Width 20.5 % (11.5-14.5); Red Blood Cell (RBC) Count 3.52 mill/uL (4.20-5.40); White Blood Cell (WBC) Count 8.2 thou/uL (4.8-10.8)
[2020-04-18 07:34] LABS: Anion Gap 12 mmol/L (10-20); BUN (Urea Nitrogen) 13 mg/dL (9.8-20.1); Calc. Creatinine Clearance 79 mL/min (70-130); Calcium 8.8 mg/dL (7.8-10.44); Carbon Dioxide 26 mmol/L (23-31); Chloride 103 mmol/L (98-107); Glucose 138 mg/dL (80-115); Potassium 3.9 mmol/L (3.5-5.1); Sodium 137 mmol/L (136-145)
[2020-04-18] MEDS: Pantoprazole 40 MG VIAL IVP SCH ×2 (08:07→20:24)
--- NOTE | 2020-04-18 13:01 | PDOC.HOSPP ---
- Subjective Encounter Date: 04/18/20 Encounter Time: 10:28 Subjective: Patient seen this morning discharge plan discussed patient does not feeling good. She has ongoing right-sided discomfort and pain. She is tolerating her p.o. intake. - Objective Vital Signs & Weight: Vital Signs (12 hours) Temp Pulse Resp BP Pulse Ox 04/18/20 11:32 98.2 F 65 18 108/59 L 93 L 04/18/20 08:00 98.3 F 64 18 118/63 94 L 04/18/20 05:50 98 F 65 18 112/56 L 91 L Weight Admit Weight 219 lb 15.988 oz Weight 212 lb 9.6 oz I&O: 04/17/20 04/18/20 04/19/20 06:59 06:59 06:59 Intake Total 1050 1120 Output Total 100 Balance 950 1120 Result Diagrams: 04/18/20 06:57 04/18/20 06:57 Additional Labs: Accuchecks 04/18/20 04/18/20 04/17/20 11:00 05:46 20:45 POC Glucose 226 H 151 H 156 H 04/17/20 15:45 POC Glucose 185 H Hospitalist ROS - Medication Medications: Active Medications Generic Name Dose Route Start Last Admin Trade Name Freq PRN Reason Stop Dose Admin Acetaminophen 650 mg 04/16/20 01:03 04/17/20 20:42 Acetaminophen 325 Mg Tab PO 650 mg Q4H PRN Administration Headache/Fever/Mild Pain (1-3) Hydrocodone Bitart/Acetaminophen 1 tab 04/16/20 01:03 04/17/20 18:42 Hydrocodone/Acetaminophen 7.5/325 Mg Tablet PO 1 tab Q4H PRN Administration Moderate Pain (4-6) Insulin Human Lispro 0 units 04/16/20 01:15 04/18/20 12:10 Humalog 300 Units/3 Ml Vial SC 4 unit .MODERATE SLIDING SC PRN Administration Moderate Correctional Scale Levothyroxine Sodium 150 mcg 04/17/20 06:00 04/18/20 05:45 Levothyroxine 150 Mcg Tab PO 150 mcg 0600 PADMINI Administration Metoprolol Succinate 50 mg 04/17/20 09:00 04/18/20 08:08 Metoprolol Succinate Xl 50 Mg Tab PO 50 mg DAILY PADMINI Administration Nicotine 14 mg 04/16/20 02:00 04/18/20 02:30 Nicotine 14 Mg Patch TD 14 mg Q24HR PADMINI Administration Ondansetron HCl 4 mg 04/16/20 15:59 04/16/20 21:13 Ondansetron Pf 4 Mg/2 Ml Vial IVP 4 mg Q6H PRN Administration Nausea/Vomiting Pantoprazole Sodium 40 mg 04/16/20 09:00 04/18/20 08:07 Pantoprazole 40 Mg Vial IVP 40 mg Q12HR PADMINI Administration Sodium Chloride 10 ml 04/16/20 01:07 04/17/20 20:41 Flush - Normal Saline 10 Ml Syringe IVF 10 ml PRN PRN Administration Saline Flush Zolpidem Tartrate 10 mg 04/16/20 21:00 04/17/20 20:41 Zolpidem Tartrate 5 Mg Tab PO 10 mg HS PADMINI Administration Hospitalist Exam Vitals: Vital Signs (12 hours) Temp Pulse Resp BP Pulse Ox 04/18/20 11:32 98.2 F 65 18 108/59 L 93 L 04/18/20 08:00 98.3 F 64 18 118/63 94 L 04/18/20 05:50 98 F 65 18 112/56 L 91 L Weight Admit Weight 219 lb 15.988 oz Weight 212 lb 9.6 oz General Appearance: NAD, awake alert Eye: PERRL ENT: normocephalic atraumatic Neck: supple Heart: RRR, normal peripheral pulses Respiratory: CTAB, normal chest expansion Gastrointestinal: soft, normal bowel sounds Neurological: cranial nerve grossly intact, no focal deficits Psychiatric: normal affect, normal behavior, A&O x 3 Hosp A/P - Plan 65-year-old female presented at outside facility with a hemoglobin of 6.[address] showing sigmoid diverticulosis. Abdominal pain, right lower quadrant Code(s): R10.31 - RIGHT LOWER QUADRANT PAIN Status: Acute Clinically patient has sigmoid diverticulitis LFTs in the normal range GI is consulted Status post 2 unit of packed RBCs Hemoglobin improved to 8.2 from 6.9 IV Protonix twice a day Levaquin and Flagyl DC the ferrous sulfate (2) acute blood loss anemia secondary to possible sigmoid diverticulosis Code(s): D64.9 - ANEMIA, UNSPECIFIED Status: Acute Follow H&H every 12 transfuse 2 unit PRBC now (3) Diabetes mellitus type 2 in obese Code(s): E11.69 - TYPE 2 DIABETES MELLITUS WITH OTHER SPECIFIED COMPLICATION; E66.9 - OBESITY, UNSPECIFIED Status: Chronic (4) HLD (hyperlipidemia) Code(s): E78.5 - HYPERLIPIDEMIA, UNSPECIFIED Status: Chronic (5) HTN (hypertension) Code(s): I10 - ESSENTIAL (PRIMARY) HYPERTENSION Status: Chronic Hypertensioncontrolled Diabetes mellitusstart insulin sliding scale Hold Amaryl for now since on clear liquid diet DVT prophylaxiswe will do SCDs, avoid heparin for now since low H&H Chronic tobacco usecessation advised, per start nicotine patch History of diastolic CHF Stable Previous moderate AR/MR noted Advance directivefull code On clear liquid diet Covid negative status post EGD and colonoscopy follow-up with the GI clinic for the polyp result. Ongoing right quadrant discomfort. Continue with the above management. Possibly plan for discharge tomorrow if she is improved. GI signed off
--- NOTE | 2020-04-18 14:35 | PRG ---
DATE OF SERVICE: 04/18/2020 OBJECTIVE: VITAL SIGNS: The patient noted with the following vital signs; afebrile, temperature 98.2, pulse 65, respiratory rate of 18, O2 saturations of 93%, blood pressure 108/89. HEENT: Unremarkable. CARDIOVASCULAR SYSTEM: First and second heart sounds were heard. RESPIRATORY SYSTEM: Clear to auscultation. DIGESTIVE SYSTEM: Revealed a benign abdomen with positive bowel sounds. EXTREMITIES: No peripheral edema. SKIN: No new gross rash. LYMPHATICS: No peripheral lymphadenopathy. LABORATORY INVESTIGATION: Showed a hemoglobin of 7.9. Chemistry showed a creatinine of 1.08. IMPRESSION: Acute kidney injury, which seems to have resolved. PLAN: 1. Continue current renal supportive measures. 2. Further management will be dependent on the clinical course. Job ID: [id number]
[2020-04-18] MEDS ORDERED: Chlorhexidine Gluconate 15 ML UDCUP SSP ONE (14:38)
[2020-04-18] MEDS: HYDROcodone/Acetaminophen 7.5/325 mg Tablet PO PRN (15:54)
[2020-04-18] MEDS: Zolpidem Tartrate 5 MG TAB PO SCH (20:25)
[2020-04-19] MEDS: Levothyroxine 150 MCG TAB PO SCH (04:59)
[2020-04-19 06:06] LABS: #Basophils 0.1 thou/uL (0.0-0.2); #Eosinphils 0.4 thou/uL (0.0-0.7); #Lymphocytes 3.4 thou/uL (1.20-3.40); #Monocytes 0.4 thou/uL (0.11-0.59); #Neutrophils 3.6 thou/uL (1.40-6.50); %Basophils 1.3 % (0.0-1.0); %Eosinophils 5.1 % (0.0-10.0); %Lymphocytes 43.3 % (21.0-51.0); %Neutrophils 45.3 % (42.0-75.0); Hemoglobin 7.8 g/dL (12.0-16.0); Mean Corpuscular HGB CONC 30.3 g/dL (32.0-36.0); Mean Corpuscular Hemoglobin 21.9 pg (27.0-31.0); Mean Corpuscular Volume 72.3 fL (78.0-98.0); Platelet Count 304 thou/uL (130-400); RBC Distribution Width 20.3 % (11.5-14.5); Red Blood Cell (RBC) Count 3.55 mill/uL (4.20-5.40); White Blood Cell (WBC) Count 7.9 thou/uL (4.8-10.8)
[2020-04-19 06:28] LABS: Anion Gap 12 mmol/L (10-20); BUN (Urea Nitrogen) 12 mg/dL (9.8-20.1); Calc. Creatinine Clearance 86 mL/min (70-130); Calcium 8.6 mg/dL (7.8-10.44); Carbon Dioxide 28 mmol/L (23-31); Chloride 101 mmol/L (98-107); Glucose 125 mg/dL (80-115); Potassium 3.8 mmol/L (3.5-5.1); Sodium 137 mmol/L (136-145)
[2020-04-19 08:01] VITALS: BP 117/57; TEMP 97.8
[2020-04-19] MEDS: Pantoprazole 40 MG VIAL IVP SCH (08:45)
[2020-04-19] MEDS: HYDROcodone/Acetaminophen 7.5/325 mg Tablet PO PRN (08:47)
--- NOTE | 2020-04-19 13:12 | PRG ---
DATE OF SERVICE: SUBJECTIVE: The patient noted with the following vital signs. OBJECTIVE: VITAL SIGNS: Afebrile, temperature 97.8, pulse 63, respiratory rate of 20, blood pressure 171/57. HEENT: Unremarkable. CARDIOVASCULAR SYSTEM: First and second heart sounds were heard. RESPIRATORY SYSTEM: Clear to auscultation. DIGESTIVE SYSTEM: Revealed a benign abdomen with positive bowel sounds. EXTREMITIES: No peripheral edema. SKIN: No new gross rash. LYMPHATIC: No peripheral lymphadenopathy. LABORATORY INVESTIGATION: Showed a hemoglobin of 7.8. Chemistry showed a creatinine of 0.99. IMPRESSION: Acute kidney injury, which is more or less has resolved. PLAN: 1. Continue current renal supportive management. 2. Further management will be dependent on the clinical course. Job ID: [id number]
--- NOTE | 2020-04-19 14:16 | PDOC.DS.DS ---
Provider Date of Admission: 04/15/20 22:46 Admitting Provider: Gerber Lui MD Primary Care Physician: NO PCP PROVIDER Course Hospital Course: Please see H&P and daily progress notes for more details. 65-year-old female presented at outside facility with a hemoglobin of 6.[address] showing sigmoid diverticulosis. Abdominal pain, right lower quadrant Code(s): R10.31 - RIGHT LOWER QUADRANT PAIN Status: Acute Clinically patient has sigmoid diverticulitis LFTs in the normal range Status post 2 unit of packed RBCs Hemoglobin improved to 8.2 from 6.9 IV Protonix twice a day Levaquin and Flagyl (2) acute blood loss anemia secondary to possible sigmoid diverticulosis Code(s): D64.9 - ANEMIA, UNSPECIFIED Status: Acute Follow H&H every 12 transfuse 2 unit PRBC now (3) Diabetes mellitus type 2 in obese Code(s): E11.69 - TYPE 2 DIABETES MELLITUS WITH OTHER SPECIFIED COMPLICATION; E66.9 - OBESITY, UNSPECIFIED Status: Chronic (4) HLD (hyperlipidemia) Code(s): E78.5 - HYPERLIPIDEMIA, UNSPECIFIED Status: Chronic (5) HTN (hypertension) Code(s): I10 - ESSENTIAL (PRIMARY) HYPERTENSION Status: Chronic Covid negative status post EGD and colonoscopy follow-up with the GI clinic for the polyp result. Patient is discharged with Protonix twice a daily for 1 month. She needs to follow-up with Dr. Ponce electroplater helper in 2 to 3 weeks. Discharge time over 30 minutes. Resuscitation Status: 04/16/20 01:03 Resuscitation Status Routine Resuscitation Status: FULL: Full Resuscitation Lab Results: 04/19/20 05:35 04/19/20 05:35 Abnormal Lab Results - Last 48 hrs 04/18/20 06:57: RBC 3.52 L, Hgb 7.9 L, Hct 25.7 L, MCV 73.1 L, MCH 22.4 L, MCHC 30.7 L, RDW 20.5 H, Lymphocytes # 3.5 H 04/19/20 05:35: RBC 3.55 L, Hgb 7.8 L, Hct 25.7 L, MCV 72.3 L, MCH 21.9 L, MCHC 30.3 L, RDW 20.3 H, Basophils % 1.3 H Microbiology - Entire Visit 04/17/20 03:41 Stool Stool Culture - Preliminary 04/17/20 03:41 Stool C. difficile GDH Antigen & Toxins - Final 04/17/20 03:41 Stool Clostridioides difficile Toxins A&B (PCR) - Final 04/17/20 03:41 Stool Stool Lactoferrin - Final 04/17/20 03:41 Stool Campylobacter Antigen Assay - Final 04/17/20 03:41 Stool Shiga Toxin Test - Final 04/17/20 03:41 Stool Stool Occult Blood ([facility]ARY) - Final Vitals: Vital Signs (12 hours) Temp Pulse Resp BP Pulse Ox 04/19/20 08:01 97.8 F 63 20 117/57 L 95 04/19/20 03:24 62 Weight Admit Weight 219 lb 15.988 oz Weight 212 lb 9.6 oz Physical Exam: The patient was seen and examined on the day of discharge. Patient seen this morning she is comfortable going home today. Hemoglobin stable at 7.8. Tendon function normal. She has a blood glucose ranging from 1 50-to 127 this am. Plan Home Medications: Medication Instructions Recorded Confirmed Type Aspirin [Ecotrin Low Strength] 1 tab PO DAILY 12/13/19 04/16/20 History Estradiol 1 mg PO DAILY 12/13/19 04/16/20 History Glimepiride 2 mg PO BID 12/13/19 04/16/20 History Levothyroxine Sodium 150 mcg PO DAILY 12/13/19 04/16/20 History Lisinopril 2.5 mg PO DAILY 12/13/19 04/16/20 History Metoprolol Succinate 50 mg PO DAILY 12/13/19 04/16/20 History Pravastatin Sodium 40 mg PO DAILY 12/13/19 04/16/20 History Zolpidem Tartrate [Ambien] 10 mg PO HS 12/13/19 04/16/20 History Furosemide 20 mg PO DAILY PRN #30 tablet 12/21/19 04/16/20 Rx HYDROcodone/Acetaminophen [[place] 1 - 2 each PO Q4HR PRN 12/22/19 04/16/20 History 7.5-325 Tablet] traMADol HCl [Tramadol HCl] 1 - 2 tab PO Q4HR PRN 12/22/19 04/16/20 History Allergies: mushroom Allergy (Verified 04/16/20 20:10) Penicillins Allergy (Verified 12/20/19 01:03) sulfamethoxazole [From Bactrim] Allergy (Verified 12/20/19 01:03) trimethoprim [From Bactrim] Allergy (Verified 12/20/19 01:03) Activity:: Activity as Tolerated Nourishment:: Regular Diet Referrals: Esteban Telles MD [Active] - ( DIRECTED ) PROVIDER,NO PCP [Primary Care Provider] - (FOLLOW UP WITH DR WICK IN 7 DAYS ) Disposition: HOME Quality CORE MEASURES:: N/A
== END 2020-04-19 16:55 | disposition home or self-care (01) | DRG 378 ==
LOC: ERS 21:27 → ERHOLD 22:46 → T4-A 04-16 19:36
PROVIDERS: ADMIT Internal Medicine; ATTEND Internal Medicine
PROC: 30233N1 Transfusion of Nonautologous Red Blood Cells into Peripheral Vein, Percutaneous Approach (ICD-10-PCS; 2020-04-15)
PROC: 0DJ08ZZ Inspection of Upper Intestinal Tract, Via Natural or Artificial Opening Endoscopic (ICD-10-PCS; principal; 2020-04-17)
PROC: 0DBP8ZZ Excision of Rectum, Via Natural or Artificial Opening Endoscopic (ICD-10-PCS; 2020-04-17)
DX: K57.31 Diverticulosis of large intestine without perforation or abscess with bleeding (principal); D62 Acute posthemorrhagic anemia; I50.32 Chronic diastolic (congestive) heart failure; Z20.822 Contact with and (suspected) exposure to COVID-19; N17.9 Acute kidney failure, unspecified; I13.0 Hypertensive heart and chronic kidney disease with heart failure and stage 1 through stage 4 chronic kidney disease, or unspecified chronic kidney disease; E87.1 Hypo-osmolality and hyponatremia; E03.9 Hypothyroidism, unspecified; E78.5 Hyperlipidemia, unspecified; F32.9 Major depressive disorder, single episode, unspecified; F17.210 Nicotine dependence, cigarettes, uncomplicated; E66.9 Obesity, unspecified; I08.0 Rheumatic disorders of both mitral and aortic valves; E11.22 Type 2 diabetes mellitus with diabetic chronic kidney disease; N18.9 Chronic kidney disease, unspecified; E87.6 Hypokalemia; K62.1 Rectal polyp; K64.8 Other hemorrhoids; K63.89 Other specified diseases of intestine; Z90.49 Acquired absence of other specified parts of digestive tract; Z86.16 Personal history of COVID-19; Z88.1 Allergy status to other antibiotic agents; Z88.0 Allergy status to penicillin; Z88.2 Allergy status to sulfonamides; Z79.84 Long term (current) use of oral hypoglycemic drugs; Z79.82 Long term (current) use of aspirin; Z79.899 Other long term (current) drug therapy; Z68.38 Body mass index [BMI] 38.0-38.9, adult
CPT/HCPCS: 36415; 36416; 36430; 80048; 80053; 82274; 82728; 83540; 83550; 83630; 85025; 86850; 86900; 86901; 87045; 87046; 87324; 87427; 87449; 87493; 87635; 88305; 94660; C9113; J1940; J1956; J2405; J2550; J2704; P9016; U0003; U0005

== ENCOUNTER 2020-05-03 13:27 | Emergency (ER) | payer MEDICARE ==
[2020-05-03] MEDS ORDERED: Acetaminophen 500 MG TAB ONE (13:49)
[2020-05-03] MEDS ORDERED: Ondansetron ODT 4 MG TAB ONE ×2 (13:49→13:58)
[2020-05-03 14:10] LABS: #Eosinphils 0.2 thou/uL (0.0-0.7); #Lymphocytes 2.7 thou/uL (1.20-3.40); #Monocytes 0.4 thou/uL (0.11-0.59); #Neutrophils 6.2 thou/uL (1.40-6.50); %Basophils 0.4 % (0.0-1.0); %Eosinophils 1.7 % (0.0-10.0); %Lymphocytes 28.2 % (21.0-51.0); %Neutrophils 65.7 % (42.0-75.0); Hemoglobin 7.8 g/dL (12.0-16.0); Mean Corpuscular HGB CONC 32.2 g/dL (32.0-36.0); Mean Corpuscular Hemoglobin 22.9 pg (27.0-31.0); Mean Platelet Volume 10.2 fL (7.4-10.4); Platelet Count 319 thou/uL (130-400); RBC Distribution Width 20.4 % (11.5-14.5); White Blood Cell (WBC) Count 9.5 thou/uL (4.8-10.8)
[2020-05-03 14:39] LABS: ALT (SGPT) 23 U/L (8-55); AST (SGOT) 45 U/L (5-34); Albumin 4.1 g/dL (3.4-4.8); Alkaline Phosphatase 71 U/L (40-110); Anion Gap 9 mmol/L (10-20); BUN (Urea Nitrogen) 10 mg/dL (9.8-20.1); Bilirubin, Total 0.3 mg/dL (0.2-1.2); Calc. Creatinine Clearance 0 mL/min (70-130); Calcium 9.2 mg/dL (7.8-10.44); Carbon Dioxide 28 mmol/L (23-31); Chloride 103 mmol/L (98-107); Globulin 3.7 g/dL (2.4-3.5); Glucose 127 mg/dL (80-115); Lipase 12 U/L (8-78); Potassium 3.6 mmol/L (3.5-5.1); Protein, Total 7.8 g/dL (5.8-8.1); Sodium 136 mmol/L (136-145)
[2020-05-03] MEDS ORDERED: Morphine 4 MG/ML VIAL ONE (15:26)
[2020-05-03 15:57] LABS: Bilirubin Negative (Negative); Blood, Urine Negative (Negative); Clarity Clear (Clear); Glucose, Urine (Dipstick) Normal (Negative); Ketone, Urine Negative (Negative); Leukocyte Negative Leu/uL (Negative); Nitrite Negative (Negative); Protein, Urine (Dipstick) 20 mg/dL (Neg-Trace); Urobilinogen Normal mg/dL (Less than 2)
== END 2020-05-03 16:51 | disposition home or self-care (01) ==
LOC: ERS 13:27
DX: R10.11 Right upper quadrant pain (principal); E11.9 Type 2 diabetes mellitus without complications; E03.9 Hypothyroidism, unspecified; E78.5 Hyperlipidemia, unspecified; I10 Essential (primary) hypertension; F17.210 Nicotine dependence, cigarettes, uncomplicated; Z79.899 Other long term (current) drug therapy
CPT/HCPCS: 36415; 71045; 74177; 80053; 81003; 83690; 84484; 85025; 93005; 96374; J2270; Q0162

== ENCOUNTER 2023-01-06 22:34 | Inpatient (IN) | payer MEDICARE ==
[2023-01-07] MEDS ORDERED: Ondansetron ODT 4 MG TAB PO PRN (00:45)
[2023-01-07] MEDS ORDERED: Acetaminophen 650 MG Suppository PR PRN (00:45)
[2023-01-07] MEDS ORDERED: Dextrose 5% in Water 1,000 ML IV PRN (00:45)
[2023-01-07] MEDS ORDERED: Ondansetron PF 4 MG/2 ML Vial IVP PRN (00:45)
[2023-01-07] MEDS ORDERED: Glucagon 1 MG/ML KIT IM PRN (00:45)
[2023-01-07] MEDS ORDERED: HumaLOG 300 UNITS/3 ML VIAL SC PRN (00:45)
[2023-01-07] MEDS ORDERED: Dextrose 50% Abboject 50 ML SYRINGE SLOW IVP PRN (00:45)
[2023-01-07] MEDS ORDERED: Zolpidem Tartrate 5 MG TAB PO SCH (01:00)
[2023-01-07 04:35] LABS: #Basophils 0.2 thou/uL (0.0-0.2); #Eosinphils 0.3 thou/uL (0.0-0.7); #Monocytes 0.6 thou/uL (0.11-0.59); #Neutrophils 5.5 thou/uL (1.40-6.50); %Basophils 1.7 % (0.0-1.0); %Eosinophils 2.8 % (0.0-10.0); %Lymphocytes 25.6 % (21.0-51.0); %Neutrophils 62.4 % (42.0-75.0); Hemoglobin 8.8 g/dL (12.0-16.0); Mean Corpuscular HGB CONC 26.7 g/dL (32.0-36.0); Mean Corpuscular Hemoglobin 18.3 pg (27.0-31.0); Mean Corpuscular Volume 68.5 fl (78.0-98.0); Mean Platelet Volume 9.9 fL (7.4-10.4); Platelet Count 267 10x3/uL (130-400); RBC Distribution Width 24.6 % (11.5-14.5); Red Blood Cell (RBC) Count 4.82 mill/uL (4.20-5.40); White Blood Cell (WBC) Count 8.8 10x3/uL (4.8-10.8)
[2023-01-07 05:03] LABS: Anion Gap 15 mmol/L (10-20); BUN (Urea Nitrogen) 7 mg/dL (9.8-20.1); Calc. Creatinine Clearance 86 mL/min (70-130); Calcium 9.3 mg/dL (7.8-10.44); Carbon Dioxide 29 mmol/L (23-31); Chloride 98 mmol/L (98-107); Estimated GFR 65; Glucose 170 mg/dL (80-115); Potassium 3.4 mmol/L (3.5-5.1); Sodium 139 mmol/L (136-145)
[2023-01-07] MEDS ORDERED: Electrolyte Replacement Protocol 1 EACH FS SCH (05:45)
[2023-01-07] MEDS ORDERED: Potassium Chloride 20 MEQ TAB PO SCH (06:00)
[2023-01-07 06:39] LABS: Iron 19 ug/dL (50-170); Iron Binding Capacity, Total 459 mcg/dL (265-497); Iron Binding Capacity, Total 463 mcg/dL (265-497)
[2023-01-07] MEDS ORDERED: Iron, Sodium Ferric Gluconate 250 MG in Sodium Chloride 0.9% 250 ML 250 ML IVPB SCH (07:45)
[2023-01-07] MEDS ORDERED: Magnesium 2 GM/50 ML(in water) 2 GM in Premix 1 BAG IVPB SCH (08:00)
[2023-01-07] MEDS ORDERED: Furosemide 40 MG/4 ML VIAL SLOW IVP SCH (09:00)
[2023-01-07] MEDS: Aspirin 81 mg Enteric Coated Tablet PO SCH (09:48)
[2023-01-07] MEDS: Lisinopril 2.5 MG TAB PO SCH (09:48)
[2023-01-07] MEDS: Estradiol 1 MG TAB PO SCH (09:48)
[2023-01-07] MEDS: Carvedilol 6.25 MG TAB PO SCH ×2 (09:48→18:21)
[2023-01-07] MEDS: Atorvastatin Calcium 10 MG TAB PO SCH (09:49)
[2023-01-07] MEDS: HumaLOG 300 UNITS/3 ML VIAL SC PRN ×2 (11:57→21:33)
[2023-01-07] MEDS: Acetaminophen 325 MG TAB PO PRN ×2 (15:08→20:47)
[2023-01-07 16:15] LABS: Potassium 3.9 mmol/L (3.5-5.1)
[2023-01-07] MEDS: Glimepiride 2 MG TAB PO SCH (16:44)
[2023-01-07] MEDS: Zolpidem Tartrate 5 MG TAB PO SCH (20:47)
[2023-01-08 04:46] LABS: Magnesium 2.4 mg/dL (1.6-2.6)
[2023-01-08] MEDS: Levothyroxine 150 MCG TAB PO SCH (05:48)
[2023-01-08] MEDS ORDERED: Metolazone 2.5 MG TAB PO SCH ×2 (07:30→08:37)
[2023-01-08] MEDS: Aspirin 81 mg Enteric Coated Tablet PO SCH (08:29)
[2023-01-08] MEDS: Lisinopril 2.5 MG TAB PO SCH (08:29)
[2023-01-08] MEDS: Carvedilol 6.25 MG TAB PO SCH ×2 (08:30→17:11)
[2023-01-08] MEDS: Glimepiride 2 MG TAB PO SCH ×2 (08:30→17:12)
[2023-01-08] MEDS: Atorvastatin Calcium 10 MG TAB PO SCH (08:31)
[2023-01-08] MEDS: Estradiol 1 MG TAB PO SCH (08:31)
[2023-01-08] MEDS: Furosemide 40 MG/4 ML VIAL SLOW IVP SCH ×2 (08:31→15:09)
[2023-01-08] MEDS: Empagliflozin 10 MG TAB PO SCH (09:08)
[2023-01-08 10:13] LABS: Anion Gap 12 mmol/L (10-20); BUN (Urea Nitrogen) 9 mg/dL (9.8-20.1); Calc. Creatinine Clearance 88 mL/min (70-130); Calcium 8.9 mg/dL (7.8-10.44); Carbon Dioxide 29 mmol/L (23-31); Chloride 98 mmol/L (98-107); Estimated GFR 68; Glucose 86 mg/dL (80-115); Potassium 3.4 mmol/L (3.5-5.1); Sodium 136 mmol/L (136-145)
[2023-01-08] MEDS ORDERED: Potassium Chloride 20 MEQ TAB PO SCH (12:00)
[2023-01-08] MEDS ORDERED: Benzonatate 100 MG CAP PO SCH (15:00)
[2023-01-08] MEDS: Nicotine 7 MG PATCH TD SCH (15:09)
[2023-01-08] MEDS: Zolpidem Tartrate 5 MG TAB PO SCH (20:17)
[2023-01-08] MEDS: Acetaminophen 325 MG TAB PO PRN (20:17)
[2023-01-09 04:45] LABS: #Basophils 0.1 thou/uL (0.0-0.2); #Eosinphils 0.4 thou/uL (0.0-0.7); #Monocytes 0.8 thou/uL (0.11-0.59); #Neutrophils 6.5 thou/uL (1.40-6.50); %Basophils 1.2 % (0.0-1.0); %Eosinophils 3.7 % (0.0-10.0); %Lymphocytes 24.8 % (21.0-51.0); %Monocytes 7.9 % (0.0-10.0); %Neutrophils 62.1 % (42.0-75.0); Hematocrit 38.3 % (36.0-47.0); Hemoglobin 10.3 g/dL (12.0-16.0); Mean Corpuscular HGB CONC 26.9 g/dL (32.0-36.0); Mean Corpuscular Hemoglobin 18.5 pg (27.0-31.0); Mean Corpuscular Volume 68.8 fl (78.0-98.0); Platelet Count 283 10x3/uL (130-400); RBC Distribution Width 24.8 % (11.5-14.5); Red Blood Cell (RBC) Count 5.57 mill/uL (4.20-5.40); White Blood Cell (WBC) Count 10.5 10x3/uL (4.8-10.8)
[2023-01-09] MEDS: Levothyroxine 150 MCG TAB PO SCH (05:10)
[2023-01-09 05:15] LABS: Anion Gap 15 mmol/L (10-20); BUN (Urea Nitrogen) 16 mg/dL (9.8-20.1); Calc. Creatinine Clearance 61 mL/min (70-130); Calcium 9.8 mg/dL (7.8-10.44); Carbon Dioxide 30 mmol/L (23-31); Chloride 93 mmol/L (98-107); Estimated GFR 45; Glucose 59 mg/dL (80-115); Potassium 3.3 mmol/L (3.5-5.1); Sodium 135 mmol/L (136-145)
[2023-01-09] MEDS ORDERED: Metolazone 2.5 MG TAB PO SCH (07:30)
[2023-01-09 07:56] LABS: Burr Cells SLIGHT = 2-5 cells HPF (0-1); CellaVision Operator ID LAB.GE; Hypochromia MODERATE=16-30 cells HPF (0-5); Microcytosis MODERATE=15-30 cells HPF (0-5); Platelet Adequacy Comment Platelets Normal; Polychromasia MODERATE = 3-4 cells HPF (0-2)
[2023-01-09] MEDS ORDERED: Potassium Chloride 20 MEQ TAB PO SCH (08:00)
[2023-01-09] MEDS: Spironolactone 25 MG TAB PO SCH (08:54)
[2023-01-09] MEDS: Empagliflozin 10 MG TAB PO SCH (08:54)
[2023-01-09] MEDS: Aspirin 81 mg Enteric Coated Tablet PO SCH (08:54)
[2023-01-09] MEDS: Lisinopril 2.5 MG TAB PO SCH (08:54)
[2023-01-09] MEDS: Carvedilol 6.25 MG TAB PO SCH ×2 (08:54→17:53)
[2023-01-09] MEDS: Glimepiride 2 MG TAB PO SCH ×2 (08:55→16:14)
[2023-01-09] MEDS: Atorvastatin Calcium 10 MG TAB PO SCH (08:55)
[2023-01-09] MEDS: Estradiol 1 MG TAB PO SCH (08:55)
[2023-01-09] MEDS: Furosemide 40 MG/4 ML VIAL SLOW IVP SCH (09:04)
[2023-01-09] MEDS ORDERED: Sodium Chloride 0.9% 250 ML 250 ML IVPB SCH (12:30)
[2023-01-09] MEDS: Nicotine 7 MG PATCH TD SCH (16:14)
[2023-01-09] MEDS: Zolpidem Tartrate 5 MG TAB PO SCH (20:35)
[2023-01-10 04:53] LABS: #Basophils 0.1 thou/uL (0.0-0.2); #Eosinphils 0.4 thou/uL (0.0-0.7); #Monocytes 0.9 thou/uL (0.11-0.59); #Neutrophils 6.2 thou/uL (1.40-6.50); %Basophils 1.1 % (0.0-1.0); %Monocytes 8.9 % (0.0-10.0); %Neutrophils 60.7 % (42.0-75.0); Hematocrit 39.5 % (36.0-47.0); Hemoglobin 10.7 g/dL (12.0-16.0); Mean Corpuscular HGB CONC 27.1 g/dL (32.0-36.0); Mean Corpuscular Hemoglobin 18.6 pg (27.0-31.0); Mean Corpuscular Volume 68.8 fl (78.0-98.0); Platelet Count 286 10x3/uL (130-400); RBC Distribution Width 25.2 % (11.5-14.5); Red Blood Cell (RBC) Count 5.74 mill/uL (4.20-5.40); White Blood Cell (WBC) Count 10.2 10x3/uL (4.8-10.8)
[2023-01-10 05:27] LABS: Anion Gap 14 mmol/L (10-20); BUN (Urea Nitrogen) 22 mg/dL (9.8-20.1); Calc. Creatinine Clearance 56 mL/min (70-130); Calcium 9.7 mg/dL (7.8-10.44); Carbon Dioxide 29 mmol/L (23-31); Chloride 94 mmol/L (98-107); Estimated GFR 41; Glucose 111 mg/dL (80-115); Potassium 3.8 mmol/L (3.5-5.1); Sodium 133 mmol/L (136-145)
[2023-01-10 05:34] LABS: Anisocytosis MODERATE=16-30 cells HPF (0-5); CellaVision Operator ID lab.abc; Hypochromia MODERATE=16-30 cells HPF (0-5); Microcytosis SLIGHT = 6-15 cells HPF (0-5); Platelet Adequacy Comment Platelets Normal; Polychromasia SLIGHT = 2-3 cells HPF (0-2)
[2023-01-10] MEDS: Levothyroxine 150 MCG TAB PO SCH (05:35)
[2023-01-10] MEDS: Furosemide 40 MG TAB PO SCH (08:37)
[2023-01-10] MEDS: Aspirin 81 mg Enteric Coated Tablet PO SCH (08:37)
[2023-01-10] MEDS: Carvedilol 6.25 MG TAB PO SCH ×2 (08:37→15:35)
[2023-01-10] MEDS: Lisinopril 2.5 MG TAB PO SCH (08:37)
[2023-01-10] MEDS: Glimepiride 2 MG TAB PO SCH ×2 (08:37→15:35)
[2023-01-10] MEDS: Spironolactone 25 MG TAB PO SCH (08:37)
[2023-01-10] MEDS: Empagliflozin 10 MG TAB PO SCH (08:37)
[2023-01-10] MEDS: Estradiol 1 MG TAB PO SCH (08:37)
[2023-01-10] MEDS: Atorvastatin Calcium 10 MG TAB PO SCH (08:37)
[2023-01-10] MEDS ORDERED: Lactated Ringer's 250 ML IV SCH (08:45)
[2023-01-10] MEDS: Lactated Ringer's 1,000 ML IV SCH ×2 (08:55→19:56)
[2023-01-10] MEDS ORDERED: FLU VACC QS2023(65UP)/MF59C/PF 60 MCG/0.5 ML SYRINGE IM ONE (09:00)
[2023-01-10] MEDS: Nicotine 7 MG PATCH TD SCH (15:35)
[2023-01-10] MEDS: Zolpidem Tartrate 5 MG TAB PO SCH (19:57)
[2023-01-11 04:37] LABS: #Basophils 0.1 thou/uL (0.0-0.2); #Eosinphils 0.4 thou/uL (0.0-0.7); #Neutrophils 6.6 thou/uL (1.40-6.50); %Basophils 1.1 % (0.0-1.0); %Lymphocytes 24.1 % (21.0-51.0); %Monocytes 9.1 % (0.0-10.0); %Neutrophils 61.4 % (42.0-75.0); Hematocrit 38.6 % (36.0-47.0); Hemoglobin 10.5 g/dL (12.0-16.0); Mean Corpuscular HGB CONC 27.2 g/dL (32.0-36.0); Mean Corpuscular Hemoglobin 18.9 pg (27.0-31.0); Mean Corpuscular Volume 69.5 fl (78.0-98.0); Platelet Count 299 10x3/uL (130-400); RBC Distribution Width 25.5 % (11.5-14.5); Red Blood Cell (RBC) Count 5.55 mill/uL (4.20-5.40); White Blood Cell (WBC) Count 10.7 10x3/uL (4.8-10.8)
[2023-01-11 05:02] LABS: Anion Gap 14 mmol/L (10-20); BUN (Urea Nitrogen) 24 mg/dL (9.8-20.1); Calc. Creatinine Clearance 69 mL/min (70-130); Calcium 9.8 mg/dL (7.8-10.44); Carbon Dioxide 30 mmol/L (23-31); Chloride 95 mmol/L (98-107); Estimated GFR 53; Potassium 3.9 mmol/L (3.5-5.1); Sodium 135 mmol/L (136-145)
[2023-01-11 05:04] LABS: Glucose 52 mg/dL (80-115)
[2023-01-11] MEDS: Levothyroxine 150 MCG TAB PO SCH (06:03)
[2023-01-11] MEDS: Aspirin 81 mg Enteric Coated Tablet PO SCH (09:05)
[2023-01-11] MEDS: Empagliflozin 10 MG TAB PO SCH (09:05)
[2023-01-11] MEDS: Carvedilol 6.25 MG TAB PO SCH ×2 (09:06→17:18)
[2023-01-11] MEDS: Spironolactone 25 MG TAB PO SCH (09:06)
[2023-01-11] MEDS: Furosemide 40 MG TAB PO SCH (09:06)
[2023-01-11] MEDS: Estradiol 1 MG TAB PO SCH (09:06)
[2023-01-11] MEDS: Glimepiride 2 MG TAB PO SCH ×2 (09:06→17:18)
[2023-01-11] MEDS: Lisinopril 2.5 MG TAB PO SCH (09:07)
[2023-01-11] MEDS: Atorvastatin Calcium 10 MG TAB PO SCH (09:08)
[2023-01-11] MEDS: Nicotine 7 MG PATCH TD SCH (17:18)
[2023-01-11] MEDS: Zolpidem Tartrate 5 MG TAB PO SCH (20:51)
[2023-01-12 06:13] LABS: #Basophils 0.1 thou/uL (0.0-0.2); #Eosinphils 0.4 thou/uL (0.0-0.7); #Monocytes 0.8 thou/uL (0.11-0.59); #Neutrophils 5.4 thou/uL (1.40-6.50); %Basophils 1.1 % (0.0-1.0); %Eosinophils 4.9 % (0.0-10.0); %Lymphocytes 25.1 % (21.0-51.0); %Monocytes 9.2 % (0.0-10.0); %Neutrophils 59.4 % (42.0-75.0); Hematocrit 38.7 % (36.0-47.0); Hemoglobin 10.6 g/dL (12.0-16.0); Mean Corpuscular HGB CONC 27.4 g/dL (32.0-36.0); Mean Corpuscular Hemoglobin 19.2 pg (27.0-31.0); Mean Corpuscular Volume 70.1 fl (78.0-98.0); Platelet Count 268 10x3/uL (130-400); Red Blood Cell (RBC) Count 5.52 mill/uL (4.20-5.40); White Blood Cell (WBC) Count 9.1 10x3/uL (4.8-10.8)
[2023-01-12] MEDS: Levothyroxine 150 MCG TAB PO SCH (06:47)
[2023-01-12 06:55] LABS: Anion Gap 13 mmol/L (10-20); BUN (Urea Nitrogen) 21 mg/dL (9.8-20.1); Calc. Creatinine Clearance 40 mL/min (70-130); Calcium 9.6 mg/dL (7.8-10.44); Carbon Dioxide 30 mmol/L (23-31); Chloride 96 mmol/L (98-107); Estimated GFR 69; Potassium 3.9 mmol/L (3.5-5.1); Sodium 135 mmol/L (136-145)
[2023-01-12 07:00] LABS: Anisocytosis SLIGHT = 6-15 cells HPF (0-5); CellaVision Operator ID lab.abc; Hypochromia SLIGHT = 6-15 cells HPF (0-5); Microcytosis SLIGHT = 6-15 cells HPF (0-5); Platelet Adequacy Comment Platelets Normal; Polychromasia SLIGHT = 2-3 cells HPF (0-2)
[2023-01-12 08:06] LABS: Glucose 53 mg/dL (80-115)
[2023-01-12] MEDS: Atorvastatin Calcium 10 MG TAB PO SCH (09:33)
[2023-01-12] MEDS: Spironolactone 25 MG TAB PO SCH (09:33)
[2023-01-12] MEDS: Aspirin 81 mg Enteric Coated Tablet PO SCH (09:33)
[2023-01-12] MEDS: Furosemide 40 MG TAB PO SCH (09:33)
[2023-01-12] MEDS: Lisinopril 2.5 MG TAB PO SCH (09:33)
[2023-01-12] MEDS: Estradiol 1 MG TAB PO SCH (09:33)
[2023-01-12] MEDS: Empagliflozin 10 MG TAB PO SCH (09:34)
[2023-01-12] MEDS: Carvedilol 6.25 MG TAB PO SCH ×2 (09:34→17:18)
[2023-01-12] MEDS: Glimepiride 2 MG TAB PO SCH ×2 (09:38→17:18)
[2023-01-12] MEDS: Nicotine 7 MG PATCH TD SCH (15:31)
[2023-01-12] MEDS: Zolpidem Tartrate 5 MG TAB PO SCH (21:59)
[2023-01-13 04:38] LABS: #Basophils 0.1 thou/uL (0.0-0.2); #Eosinphils 0.4 thou/uL (0.0-0.7); #Monocytes 0.8 thou/uL (0.11-0.59); #Neutrophils 5.9 thou/uL (1.40-6.50); %Basophils 1.3 % (0.0-1.0); %Eosinophils 4.6 % (0.0-10.0); %Lymphocytes 25.2 % (21.0-51.0); %Monocytes 8.2 % (0.0-10.0); %Neutrophils 60.5 % (42.0-75.0); Hematocrit 38.9 % (36.0-47.0); Hemoglobin 10.8 g/dL (12.0-16.0); Mean Corpuscular HGB CONC 27.8 g/dL (32.0-36.0); Mean Corpuscular Hemoglobin 19.4 pg (27.0-31.0); Mean Corpuscular Volume 69.8 fl (78.0-98.0); Mean Platelet Volume 10.1 fL (7.4-10.4); Platelet Count 289 10x3/uL (130-400); RBC Distribution Width 26.5 % (11.5-14.5); Red Blood Cell (RBC) Count 5.57 mill/uL (4.20-5.40); White Blood Cell (WBC) Count 9.7 10x3/uL (4.8-10.8)
[2023-01-13 05:10] LABS: Anion Gap 16 mmol/L (10-20); BUN (Urea Nitrogen) 27 mg/dL (9.8-20.1); Calc. Creatinine Clearance 63 mL/min (70-130); Calcium 9.9 mg/dL (7.8-10.44); Carbon Dioxide 26 mmol/L (23-31); Chloride 96 mmol/L (98-107); Estimated GFR 49; Glucose 88 mg/dL (80-115); Potassium 4.1 mmol/L (3.5-5.1); Sodium 134 mmol/L (136-145)
[2023-01-13] MEDS: Levothyroxine 150 MCG TAB PO SCH (06:40)
[2023-01-13] MEDS ORDERED: Furosemide 40 MG TAB PO SCH (07:30)
[2023-01-13] MEDS: Aspirin 81 mg Enteric Coated Tablet PO SCH (08:19)
[2023-01-13] MEDS: Empagliflozin 10 MG TAB PO SCH (08:19)
[2023-01-13] MEDS: Glimepiride 2 MG TAB PO SCH ×2 (08:19→16:43)
[2023-01-13] MEDS: Carvedilol 6.25 MG TAB PO SCH ×2 (08:19→16:43)
[2023-01-13] MEDS: Estradiol 1 MG TAB PO SCH (08:19)
[2023-01-13] MEDS: Spironolactone 25 MG TAB PO SCH (08:19)
[2023-01-13] MEDS: Lisinopril 2.5 MG TAB PO SCH (08:20)
[2023-01-13] MEDS: Atorvastatin Calcium 10 MG TAB PO SCH (08:20)
[2023-01-13] MEDS: Nicotine 7 MG PATCH TD SCH (14:35)
[2023-01-13] MEDS ORDERED: Lactated Ringer's 250 ML IV SCH (15:30)
[2023-01-13] MEDS: Zolpidem Tartrate 5 MG TAB PO SCH (20:31)
[2023-01-14 06:57] VITALS: BMI 36.6
[2023-01-14] MEDS: Levothyroxine 150 MCG TAB PO SCH (06:57)
[2023-01-14] MEDS: Estradiol 1 MG TAB PO SCH (08:26)
[2023-01-14] MEDS: Aspirin 81 mg Enteric Coated Tablet PO SCH (08:26)
[2023-01-14] MEDS: Spironolactone 25 MG TAB PO SCH (08:26)
[2023-01-14] MEDS: Lisinopril 2.5 MG TAB PO SCH (08:26)
[2023-01-14] MEDS: Carvedilol 6.25 MG TAB PO SCH ×2 (08:26→17:35)
[2023-01-14] MEDS: Empagliflozin 10 MG TAB PO SCH (08:26)
[2023-01-14] MEDS: Glimepiride 2 MG TAB PO SCH ×2 (08:27→17:35)
[2023-01-14] MEDS: Atorvastatin Calcium 10 MG TAB PO SCH (08:27)
[2023-01-14] MEDS: Nicotine 7 MG PATCH TD SCH (14:44)
[2023-01-14 16:21] VITALS: TEMP 97.8
[2023-01-14 17:36] VITALS: BP 122/59
== END 2023-01-14 17:45 | disposition home or self-care (01) | DRG 291 ==
LOC: 2NO 23:04
PROVIDERS: ADMIT Student in an Organized Health Care Education/Training Program; ATTEND Hospitalist
DX: I11.0 Hypertensive heart disease with heart failure (principal); I50.33 Acute on chronic diastolic (congestive) heart failure; J96.21 Acute and chronic respiratory failure with hypoxia; N17.9 Acute kidney failure, unspecified; E11.9 Type 2 diabetes mellitus without complications; J44.9 Chronic obstructive pulmonary disease, unspecified; E78.5 Hyperlipidemia, unspecified; E03.9 Hypothyroidism, unspecified; E66.9 Obesity, unspecified; D50.9 Iron deficiency anemia, unspecified; E87.6 Hypokalemia; Z88.0 Allergy status to penicillin; Z88.2 Allergy status to sulfonamides; Z79.82 Long term (current) use of aspirin; Z79.899 Other long term (current) drug therapy; Z90.710 Acquired absence of both cervix and uterus; Z98.890 Other specified postprocedural states; Z86.16 Personal history of COVID-19; Z79.4 Long term (current) use of insulin
CPT/HCPCS: 36415; 36416; 80048; 82728; 83540; 83550; 83735; 85025; 93306; 97139; J1650; J1815; J1940; J2916; J3475; J7050; J7120; Q0162

== ENCOUNTER 2024-02-05 10:45 | Inpatient (IN) | payer MEDICARE ==
[2024-02-05 11:20] LABS: #Basophils 0.19 10x3/uL (0.0-0.2); %Basophils 1.3 % (0.0-1.0); %Eosinophils 16.8 % (0.0-10.0); %Lymphocytes 13.2 % (21.0-51.0); %Monocytes 4.8 % (0.0-10.0); %Neutrophils 63.6 % (42.0-75.0); Hematocrit 40.2 % (36.0-47.0); Hemoglobin 12.9 g/dL (12.0-16.0); Mean Corpuscular HGB CONC 32.1 g/dL (32.0-36.0); Mean Corpuscular Hemoglobin 29.4 pg (27.0-31.0); Mean Corpuscular Volume 91.6 fL (78.0-98.0); Platelet Count 265 10x3/uL (130-400); RBC Distribution Width 14.6 % (11.5-14.5); Red Blood Cell (RBC) Count 4.39 mill/uL (4.20-5.40)
[2024-02-05 11:39] LABS: ALT (SGPT) 17 U/L (8-55); AST (SGOT) 22 U/L (5-34); Albumin 3.8 g/dL (3.4-4.8); Alkaline Phosphatase 57 U/L (40-110); Anion Gap 15 mmol/L (10-20); BUN (Urea Nitrogen) 18 mg/dL (9.8-20.1); Bilirubin, Total 0.5 mg/dL (0.2-1.2); Calc. Creatinine Clearance 0 mL/min (70-130); Calcium 9.3 mg/dL (7.8-10.44); Carbon Dioxide 21 mmol/L (23-31); Chloride 106 mmol/L (98-107); Estimated GFR 64; Globulin 3.9 g/dL (2.4-3.5); Glucose 239 mg/dL (80-115); Potassium 4.7 mmol/L (3.5-5.1); Protein, Total 7.7 g/dL (5.8-8.1); Sodium 137 mmol/L (136-145)
[2024-02-05 11:44] LABS: Troponin I 0.035 ng/mL (< 0.028)
[2024-02-05] MEDS ORDERED: Ipratropium/Albuterol 3 ML NEB ONE ×2 (12:24→21:07)
[2024-02-05 13:06] LABS: Bacteria/HPF None Seen HPF (None Seen); Bilirubin Negative (Negative); Blood, Urine Negative (Negative); CAUTI Indications for Culture Pelvic or flank pain; Clarity Clear (Clear); Glucose, Urine (Dipstick) 200 mg/dL (Negative); Ketone, Urine Negative (Negative); Leukocyte 75 Leu/uL (Negative); Nitrite Negative (Negative); Protein, Urine (Dipstick) 10 mg/dL (Neg-Trace); RBC/HPF 0-3 HPF (0-3); Specific Gravity, Urine 1.023 (1.002-1.036); Squamous Epithelial 0-3 HPF (0-3); Urobilinogen Normal mg/dL (Less than 2); pH, Urine 5.5 (5.0-9.0)
[2024-02-05] MEDS ORDERED: Magnesium 2 GM/50 ML BAG (IN WATER) ONE (13:09)
[2024-02-05] MEDS ORDERED: Furosemide 20 MG (2 mL) VIAL ONE (13:09)
[2024-02-05] MEDS ORDERED: methylPREDNISolone Sod Succ/PF 125 MG/2 ML VIAL ONE (13:09)
[2024-02-05 13:11] LABS: Urine Culture Reflex Yes Yes
[2024-02-05 13:36] LABS: Troponin I 0.013 ng/mL (< 0.028)
[2024-02-05] MEDS ORDERED: LevoFLOXacin 750 mg/D5W 150 ml Premix Bag ONE (14:19)
[2024-02-05] MEDS ORDERED: Ipratropium/Albuterol 3 ML NEB NEB PRN (14:37)
[2024-02-05] MEDS ORDERED: Ondansetron PF 4 MG/2 ML Vial IVP PRN (14:39)
[2024-02-05] MEDS ORDERED: traMADol HCl 50 MG TAB PO PRN (14:39)
[2024-02-05] MEDS ORDERED: Acetaminophen 325 MG TAB PO PRN (14:39)
[2024-02-05 16:23] LABS: Troponin I 0.028 ng/mL (< 0.028)
[2024-02-05] MEDS ORDERED: Carvedilol 6.25 MG TAB ONE (17:41)
[2024-02-05] MEDS: Carvedilol 6.25 MG TAB PO SCH (17:44)
[2024-02-05] MEDS ORDERED: hydrALAZINE 20 MG/ML VIAL SLOW IVP PRN (18:39)
[2024-02-05] MEDS ORDERED: methylPREDNISolone Sod Succ 40 MG VIAL ONE (18:59)
[2024-02-05] MEDS: methylPREDNISolone Sod Succ 40 MG VIAL IVP SCH (19:07)
[2024-02-05] MEDS: Mometasone 100 MCG/Formoterol 5 MCG 120 PUFF INHALER INH SCH (21:28)
[2024-02-05] MEDS: Ipratropium/Albuterol 3 ML NEB NEB SCH (21:30)
[2024-02-06] MEDS ORDERED: Famotidine 20 MG TAB ONE (00:16)
[2024-02-06] MEDS: Famotidine 20 MG TAB PO SCH (00:20)
[2024-02-06] MEDS ORDERED: Ipratropium/Albuterol 3 ML NEB ONE (00:42)
[2024-02-06 04:33] VITALS: BMI 39.6
[2024-02-06 05:45] LABS: #Basophils Less than 0.03 10x3/uL (0.0-0.2); #Eosinophils Less than 0.03 10x3/uL (0.0-0.7); %Basophils 0.1 % (0.0-1.0); %Lymphocytes 14.2 % (21.0-51.0); %Monocytes 2.3 % (0.0-10.0); %Neutrophils 83.1 % (42.0-75.0); Hematocrit 37.3 % (36.0-47.0); Hemoglobin 12.3 g/dL (12.0-16.0); Mean Corpuscular Hemoglobin 29.1 pg (27.0-31.0); Mean Corpuscular Volume 88.2 fL (78.0-98.0); Mean Platelet Volume 11.7 fL (7.4-10.4); Platelet Count 241 10x3/uL (130-400); RBC Distribution Width 14.4 % (11.5-14.5); Red Blood Cell (RBC) Count 4.23 mill/uL (4.20-5.40)
[2024-02-06 06:20] LABS: Anion Gap 15 mmol/L (10-20); BUN (Urea Nitrogen) 20 mg/dL (9.8-20.1); Calc. Creatinine Clearance 95 mL/min (70-130); Calcium 9.5 mg/dL (7.8-10.44); Carbon Dioxide 22 mmol/L (23-31); Chloride 101 mmol/L (98-107); Estimated GFR 69; Glucose 296 mg/dL (80-115); Potassium 4.3 mmol/L (3.5-5.1); Sodium 134 mmol/L (136-145)
[2024-02-06] MEDS: Levothyroxine Sodium 100 MCG TAB PO SCH (06:25)
[2024-02-06] MEDS ORDERED: Dextrose 5% in Water 1,000 ML IV PRN (06:37)
[2024-02-06] MEDS ORDERED: Dextrose 50% Abboject 50 ML SYRINGE SLOW IVP PRN (06:37)
[2024-02-06] MEDS ORDERED: Glucagon 1 MG/ML KIT IM PRN (06:37)
[2024-02-06] MEDS ORDERED: Insulin Lispro 100 UNIT/ML 10 ML VIAL SC PRN (06:37)
[2024-02-06 08:18] LABS: Hemoglobin A1c 6.2 % (4.0-6.0)
[2024-02-06] MEDS ORDERED: Electrolyte Replacement Protocol FS PRN ×2 (08:45→17:59)
[2024-02-06] MEDS: Atorvastatin Calcium 40 MG TAB PO SCH (08:47)
[2024-02-06] MEDS: Aspirin 81 mg Enteric Coated Tablet PO SCH (08:47)
[2024-02-06] MEDS: methylPREDNISolone Sod Succ 40 MG VIAL IVP SCH (08:48)
[2024-02-06] MEDS: Enoxaparin 40 MG (0.4 mL) SYRINGE SC SCH (08:48)
[2024-02-06] MEDS ORDERED: Benzonatate 100 MG CAP PO PRN (11:37)
[2024-02-06] MEDS: guaiFENesin ER 600 MG TAB PO SCH ×2 (13:35→20:20)
[2024-02-06] MEDS: LevoFLOXacin 750 mg/D5W 750 MG in Premix 1 BAG IVPB SCH (13:35)
[2024-02-06] MEDS: Insulin Lispro 100 UNIT/ML 10 ML VIAL SC PRN (17:25)
[2024-02-06] MEDS: Electrolyte Replacement Protocol 1 EACH FS ONE (18:40)
[2024-02-06] MEDS: Zolpidem Tartrate 5 MG TAB PO SCH (21:54)
[2024-02-07 05:33] LABS: Anion Gap 12 mmol/L (10-20); BUN (Urea Nitrogen) 27 mg/dL (9.8-20.1); Calc. Creatinine Clearance 97 mL/min (70-130); Calcium 9.2 mg/dL (7.8-10.44); Carbon Dioxide 22 mmol/L (23-31); Chloride 101 mmol/L (98-107); Estimated GFR 71; Glucose 245 mg/dL (80-115); Magnesium 2.2 mg/dL (1.6-2.6); Potassium 4.4 mmol/L (3.5-5.1); Sodium 131 mmol/L (136-145)
[2024-02-07] MEDS: Spironolactone 25 MG TAB PO SCH (09:46)
[2024-02-07] MEDS: FLUoxetine HCl 20 MG CAP PO SCH (09:47)
[2024-02-07] MEDS: Glimepiride 4 MG TAB PO SCH (09:47)
[2024-02-07] MEDS: Fenofibrate Nanocrystallized 145 MG TAB PO SCH (09:47)
[2024-02-07] MEDS: Saxagliptin 2.5 MG TAB PO SCH (09:48)
[2024-02-07] MEDS: Lisinopril 10 MG TAB PO SCH (09:48)
[2024-02-07] MEDS: Insulin Lispro 100 UNIT/ML 10 ML VIAL SC SCH (13:20)
[2024-02-07] MEDS: methylPREDNISolone Sod Succ 40 MG VIAL IVP SCH (17:56)
[2024-02-08] MEDS: Sodium Chloride 0.45% 1,000 ML IV SCH (09:08)
[2024-02-08 12:24] LABS: Anion Gap 12 mmol/L (10-20); BUN (Urea Nitrogen) 30 mg/dL (9.8-20.1); Calc. Creatinine Clearance 96 mL/min (70-130); Calcium 9.1 mg/dL (7.8-10.44); Carbon Dioxide 23 mmol/L (23-31); Chloride 103 mmol/L (98-107); Estimated GFR 70; Glucose 169 mg/dL (80-115); Potassium 4.2 mmol/L (3.5-5.1); Sodium 134 mmol/L (136-145)
[2024-02-09 05:03] LABS: #Basophils Less than 0.03 10x3/uL (0.0-0.2); #Eosinophils Less than 0.03 10x3/uL (0.0-0.7); %Basophils 0.1 % (0.0-1.0); %Lymphocytes 7.8 % (21.0-51.0); %Neutrophils 87.4 % (42.0-75.0); Hematocrit 38.7 % (36.0-47.0); Hemoglobin 12.8 g/dL (12.0-16.0); Mean Corpuscular HGB CONC 33.1 g/dL (32.0-36.0); Mean Corpuscular Hemoglobin 28.8 pg (27.0-31.0); Mean Corpuscular Volume 87.2 fL (78.0-98.0); Mean Platelet Volume 11.1 fL (7.4-10.4); Platelet Count 256 10x3/uL (130-400); RBC Distribution Width 14.3 % (11.5-14.5); Red Blood Cell (RBC) Count 4.44 mill/uL (4.20-5.40)
[2024-02-09 05:21] LABS: Anion Gap 11 mmol/L (10-20); BUN (Urea Nitrogen) 25 mg/dL (9.8-20.1); Calc. Creatinine Clearance 108 mL/min (70-130); Calcium 8.7 mg/dL (7.8-10.44); Carbon Dioxide 24 mmol/L (23-31); Chloride 102 mmol/L (98-107); Estimated GFR 80; Glucose 210 mg/dL (80-115); Potassium 4.2 mmol/L (3.5-5.1); Sodium 133 mmol/L (136-145)
[2024-02-09 16:26] VITALS: BP 132/60; TEMP 97.6
== END 2024-02-09 18:40 | disposition home or self-care (01) | DRG 190 ==
LOC: ERS 10:45 → ERHOLD 14:09 → OBS 02-06 02:56 → OBSVTOIN 02-06 11:58
PROVIDERS: ADMIT Internal Medicine; ATTEND Internal Medicine
DX: J44.1 Chronic obstructive pulmonary disease with (acute) exacerbation (principal); J96.21 Acute and chronic respiratory failure with hypoxia; I50.32 Chronic diastolic (congestive) heart failure; I11.0 Hypertensive heart disease with heart failure; E11.9 Type 2 diabetes mellitus without complications; E03.9 Hypothyroidism, unspecified; E78.5 Hyperlipidemia, unspecified; D72.829 Elevated white blood cell count, unspecified; Z90.710 Acquired absence of both cervix and uterus; Z88.0 Allergy status to penicillin; Z86.16 Personal history of COVID-19; Z87.891 Personal history of nicotine dependence
CPT/HCPCS: 36415; 36416; 71045; 80048; 80053; 81001; 83036; 83605; 83735; 83880; 84145; 84484; 85025; 87086; 87428; 93005; 93306; 94640; 94664; 96365; 96375; J1650; J1815; J1940; J1956; J2919; J3475; J7620